=== PATIENT | male | born 1930 | race Caucasian/White ===

== ENCOUNTER → 2016-07-06 | Outpatient (CLI) | payer MEDICARE, OTHER ==
[~2016-07-06] MED LIST: ATOR10 PO; ECOT81TA2 PO; LATA.005%O OU; LEVE750T8 PO; PRED20 PO; RANI150T PO; RIVA15 PO; RIVA20 PO
[2016-07-06 15:06] LABS: ALKALINE PHOSPHATASE 65 U/L (45-117); ALT (GPT) 23 U/L (12-78); ANION GAP 9 MEQ/L (5-15); AST (GOT) 14 U/L (15-37); BICARBONATE 25.5 MEQ/L (21.0-32.0); BLOOD UREA NITROGEN 9 MG/DL (7-18); CHLORIDE 106 MEQ/L (98-107); GLOMERULAR FILTRATION RATE 95 ML/MIN (>89); GLUCOSE,FASTING 106 MG/DL (74-99); HDL CHOLESTEROL 120.6 MG/DL (40.0-60.0); LDL CHOLESTEROL 45 MG/DL (0-99); POTASSIUM 3.8 MEQ/L (3.5-5.1); SODIUM (NA) 140 MEQ/L (136-145); TOTAL BILIRUBIN ADULT 0.3 MG/DL (0.2-1.0)
[2016-07-06 15:08] LABS: CREATINE KINASE 49 U/L (39-308)
== END ==
LOC: CLAB 14:20
PROVIDERS: ATTEND Internal Medicine Cardiovascular Disease
DX: E78.5 Hyperlipidemia, unspecified (principal); I10 Essential (primary) hypertension; I25.10 Atherosclerotic heart disease of native coronary artery without angina pectoris
CPT/HCPCS: 36415; 80053; 80061; 82550

== ENCOUNTER → 2016-07-29 | Outpatient (CLI) | payer MEDICARE, OTHER | LOC: CLAB 09:11 | PROVIDERS: ATTEND Internal Medicine Rheumatology | DX: M31.6 Other giant cell arteritis (principal) | CPT/HCPCS: 36415; 85652; 86140 ==

== ENCOUNTER → 2016-10-01 | Outpatient (CLI) | payer MEDICARE, OTHER | LOC: CLAB 09:29 | PROVIDERS: ATTEND Internal Medicine Rheumatology | DX: M31.6 Other giant cell arteritis (principal) | CPT/HCPCS: 36415; 85652; 86140 ==

== ENCOUNTER → 2016-10-27 | Outpatient (CLI) | payer MEDICARE, OTHER ==
[2016-10-27 14:43] LABS: AUTOMATED NEUTROPHIL # 6.3 TH/MM3 (1.8-7.7); BASOPHIL # 0.1 TH/MM3 (0-0.2); BASOPHIL % 0.6 % (0.0-2.0); EOSINOPHIL # 0.1 TH/MM3 (0-0.4); EOSINOPHIL % 1.2 % (0.0-4.0); HEMATOCRIT 38.4 % (39.0-51.0); HEMO FLAGS DIFF FINAL; LYMPHOCYTE # 2.1 TH/MM3 (1.0-4.8); MEAN CELL VOLUME 98.2 FL (80.0-100.0); MEAN CORPUSCULAR HEMOGLOBIN 33.2 PG (27.0-34.0); MEAN CORPUSCULAR HGB CONC 33.8 % (32.0-36.0); MONO % 9.4 % (0.0-8.0); NEUT % 66.8 % (16.0-70.0); PLATELET COUNT 220 TH/MM3 (150-450); RED BLOOD COUNT 3.91 MIL/MM3 (4.50-5.90); WHITE BLOOD COUNT 9.4 TH/MM3 (4.0-11.0)
[2016-10-27 14:54] LABS: ALT (GPT) 18 U/L (12-78); ANION GAP 7 MEQ/L (5-15); AST (GOT) 19 U/L (15-37); BICARBONATE 27.4 MEQ/L (21.0-32.0); BLOOD UREA NITROGEN 7 MG/DL (7-18); CHLORIDE 106 MEQ/L (98-107); GLOMERULAR FILTRATION RATE 87 ML/MIN (>89); GLUCOSE,FASTING 93 MG/DL (74-99); POTASSIUM 5.4 MEQ/L (3.5-5.1); SODIUM (NA) 140 MEQ/L (136-145)
[2016-10-27 14:57] LABS: ALKALINE PHOSPHATASE 67 U/L (45-117); HDL CHOLESTEROL 102.1 MG/DL (40.0-60.0); LDL CHOLESTEROL 66 MG/DL (0-99); TOTAL BILIRUBIN ADULT 0.4 MG/DL (0.2-1.0)
[2016-10-27 15:09] LABS: CREATINE KINASE 68 U/L (39-308)
== END ==
LOC: CLAB 14:23
PROVIDERS: ATTEND Internal Medicine Cardiovascular Disease
DX: E78.5 Hyperlipidemia, unspecified (principal); I25.10 Atherosclerotic heart disease of native coronary artery without angina pectoris; I47.1 Supraventricular tachycardia; Z79.899 Other long term (current) drug therapy
CPT/HCPCS: 36415; 80053; 80061; 82550; 85025

== ENCOUNTER → 2016-12-31 | Outpatient (CLI) | payer MEDICARE, OTHER | LOC: CLAB 08:57 | PROVIDERS: ATTEND Internal Medicine Rheumatology | DX: M31.6 Other giant cell arteritis (principal) | CPT/HCPCS: 36415; 85652; 86140 ==

== ENCOUNTER → 2017-01-27 | Outpatient (CLI) | payer MEDICARE, OTHER | LOC: CLAB 10:59 | PROVIDERS: ATTEND Specialist | DX: M31.6 Other giant cell arteritis (principal); G72.9 Myopathy, unspecified | CPT/HCPCS: 36415; 85652; 86140 ==

== ENCOUNTER → 2017-03-29 | Outpatient (CLI) | payer MEDICARE, OTHER ==
[2017-03-29 10:55] LABS: AUTOMATED NEUTROPHIL # 6.2 TH/MM3 (1.8-7.7); BASOPHIL % 0.1 % (0.0-2.0); HEMATOCRIT 36.1 % (39.0-51.0); HEMO FLAGS DIFF FINAL; LYMPH % 5.7 % (9.0-44.0); LYMPHOCYTE # 0.4 TH/MM3 (1.0-4.8); MEAN CELL VOLUME 98.6 FL (80.0-100.0); MEAN CORPUSCULAR HEMOGLOBIN 32.5 PG (27.0-34.0); MONO % 4.4 % (0.0-8.0); NEUT % 89.8 % (16.0-70.0); PLATELET COUNT 231 TH/MM3 (150-450); RED BLOOD COUNT 3.66 MIL/MM3 (4.50-5.90); RED CELL DISTRIBUTION WIDTH 12.9 % (11.6-17.2)
[2017-03-29 11:19] LABS: ALT (GPT) 15 U/L (12-78); ANION GAP 7 MEQ/L (5-15); AST (GOT) 12 U/L (15-37); BICARBONATE 25.9 MEQ/L (21.0-32.0); BLOOD UREA NITROGEN 9 MG/DL (7-18); CHLORIDE 109 MEQ/L (98-107); GLOMERULAR FILTRATION RATE 73 ML/MIN (>89); GLUCOSE,FASTING 129 MG/DL (74-99); POTASSIUM 4.2 MEQ/L (3.5-5.1); SODIUM (NA) 142 MEQ/L (136-145)
[2017-03-29 11:45] LABS: ALKALINE PHOSPHATASE 74 U/L (45-117); TOTAL BILIRUBIN ADULT 0.5 MG/DL (0.2-1.0)
== END ==
LOC: CLAB 10:29
DX: I26.99 Other pulmonary embolism without acute cor pulmonale (principal)
CPT/HCPCS: 36415; 80053; 82607; 82746; 85025

== ENCOUNTER 2017-06-15 07:48 | Inpatient (IN) | payer MEDICARE, OTHER ==
[2017-06-15] VITALS (7 sets, daily range): BP systolic 132–202; BP diastolic 68–94; PULSE 68–102; RESP 16–22; TEMP 97.5–98; O2SAT 95–98
[~2017-06-15] VITALS: Ht 177.8 cm; Wt 64.3 kg
[2017-06-15] MEDS ORDERED: EYEDRO (08:15)
[2017-06-15] MEDS ORDERED: SODIUM CHLORIDE 0.9% FLUSH 10 ML FLUSH IVF PRN (08:15)
[2017-06-15] MEDS ORDERED: RESP: ALBUTEROL 2.5 MG/IPRATROPIUM 0.5 MG NEB (SCH) INH ONE (08:15)
[2017-06-15] MEDS ORDERED: LEVE750T8 PO (08:15)
[2017-06-15] MEDS ORDERED: LIPI10TA PO (08:15)
[2017-06-15] MEDS ORDERED: PRED5TAB PO (08:15)
[2017-06-15] MEDS ORDERED: RABE1TAB PO (08:15)
--- NOTE | 2017-06-15 08:28 | RADRPT ---
EXAM DATE/TIME: 06/15/2017 08:16 [facility] COMPARISON: CHEST SINGLE AP, April 24, 2016, 8:28. INDICATIONS : Short of breath. MEDICAL HISTORY : History of PEs. SURGICAL HISTORY : None. ENCOUNTER: Initial ACUITY: 1 week PAIN SCORE: 0/10 LOCATION: Bilateral chest FINDINGS: A single view of the chest demonstrates hyperinflation. Heart normal size. Biapical pleural-parenchym al scarring again seen. No consolidation. The cardiomediastinal contours are unremarkable. Osseous s tructures are intact. CONCLUSION: 1. Biapical pleural-parenchymal scarring. 2. No infiltrate. Rashi Brown MD on June 15, 2017 at 8:25 Board Certified Radiologist. This report was verified electronically.
--- NOTE | 2017-06-15 08:28 | PD ---
HPI Chief Complaint: Respiratory Distress Time Seen by Provider: 08:00 Travel History International Travel<30 days: No Contact w/Intl Traveler<30days: No Traveled to known affect area: No History of Present Illness HPI The patient is a 87-year-old male who presents to the emergency department for shortness of breath and right sided chest pain of one week's duration. The patient states his shortness of breath started one week ago and he now has developed right sided chest pain. The pain is described as dull, initially intermittent, however, now constant for the last 2 days. The pain is located over the anterior lateral aspect of the right chest and radiates to the right scapular area. The pain is constant, but is worse with inspiration and occasional cough. He notes a minimal dry nonproductive cough. He denies any known history of COPD or congestive heart failure. He does have a history of pulmonary embolism one year ago and was treated, however, currently does not take any anticoagulants. He denies any recent hospitalizations, surgeries, or prolonged travel. The patient denies any associated fever, chills, or sweats. The patient is followed by his primary physician, Dr. Acosta, and his shove up, Dr. Phelps. The shortness of breath is worse with lying supine and with exertion. PFSH Past Medical History Hx Anticoagulant Therapy: Yes Arthritis: Yes (GENERALIZED) Autoimmune Disease: No Blood Disorders: No Anxiety: No Depression: No Cancer: Yes (SKIN CANCER ) Cardiovascular Problems: Yes (Temporal arteritisis ) High Cholesterol: Yes Chemotherapy: No Diabetes: No Diminished Hearing: No Endocrine: No Gastrointestinal Disorders: Yes GERD: Yes Glaucoma: Yes Genitourinary: Yes (CHRONIC KIDNEY STONES) Immune Disorder: No Implanted Vascular Access Dvce: Yes Kidney Stones: Yes Musculoskeletal: Yes Neurologic: No Psychiatric: No Reproductive: No Respiratory: No Integumentary: Yes (MRSA X 4) Radiation Therapy: No Thyroid Disease: No Past Surgical History Body Medical Devices: RIGHT GREAT TOE IMPLANT Eye Surgery: Yes (SHIMA. CATARACT EXTRACTION WITH IOL's) Genitourinary Surgery: Yes (NEPHROLITHOTRIPSY) Other Surgery: Yes Family History Family Hypercholesterolemia: Yes Social History Alcohol Use: Yes (OCCASIONALLY) Tobacco Use: No (quit 20 years ago) Substance Use: No Allergies-Medications (Allergen,Severity, Reaction): Coded Allergies: Sulfa (Sulfonamide Antibiotics) (Verified Adverse Reaction, Severe, hives , 06/15/17) doxycycline (Verified Adverse Reaction, Severe, RASH, 06/15/17) azithromycin (Verified Adverse Reaction, Intermediate, HIVES, 06/15/17) ciprofloxacin (Verified Adverse Reaction, Intermediate, HIVES, 06/15/17) levofloxacin (Verified Adverse Reaction, Intermediate, hives, 06/15/17) linezolid (Verified Adverse Reaction, Intermediate, rash, 06/15/17) mupirocin (Verified Adverse Reaction, Intermediate, HIVES, 06/15/17) penicillin G (Verified Adverse Reaction, Intermediate, HIVES, 06/15/17) rifampin (Verified Adverse Reaction, Intermediate, hives, 06/15/17) sulfamethoxazole (Verified Adverse Reaction, Intermediate, hives, 06/15/17 ) trimethoprim (Verified Adverse Reaction, Intermediate, hives, 06/15/17) *MDRO Multi-Drug Resistant Organism (Verified Adverse Reaction, Unknown, 06/15/17) MRSA (wounds) - 2008 MRSA PCR Screens NEGATIVE - 02/18/16, 02/20/16 CLEARED PER INFECTION CONTROL Reported Meds & Prescriptions Reported Meds & Active Scripts Active Reported Prednisone 5 Mg Tab 5 Mg PO DAILY Rabeprazole (Rabeprazole Sodium) 20 Mg Tab 20 Mg PO DAILY Lipitor (Atorvastatin Calcium) 10 Mg Tab 10 Mg PO HS Levetiracetam 750 Mg Tab 750 Mg PO BID [Eye Drops] Review of Systems Except as stated in HPI: all other systems reviewed are Neg General / Constitutional: No: Fever, Chills Cardiovascular: Positive: Chest Pain or Discomfort, Dyspnea on exertion Respiratory: Positive: Shortness of Breath, Pleuritic Pain Gastrointestinal: No: Nausea, Vomiting, Abdominal Pain Musculoskeletal: Positive: Edema (chronic right lower extremity edema secondary to previous surgery) Neurologic: No: Dizziness Physical Exam Narrative GENERAL: Awake, alert, pleasant 87-year-old male who appears his stated age and is in no acute respiratory distress. SKIN: Focused skin assessment warm/dry. No noted hair of the head or eyebrows. Patient is wearing facial makeup. HEAD: Atraumatic. Normocephalic. EYES: Pupils equal and round. No scleral icterus. No injection or drainage. ENT: No nasal bleeding or discharge. Mucous membranes pink and moist. NECK: Trachea midline. No JVD. CARDIOVASCULAR: Regular, no audible murmur, heart rate in the 90s. RESPIRATORY: No accessory muscle use. Clear to auscultation. Breath sounds equal bilaterally. GASTROINTESTINAL: Abdomen soft, non-tender, nondistended. MUSCULOSKELETAL: No obvious deformities. No clubbing. No cyanosis. Right lower extremity is slightly larger than the left lower extremity. Calves are soft bilaterally. NEUROLOGICAL: Awake and alert. No obvious cranial nerve deficits. Motor grossly within normal limits. Normal speech. PSYCHIATRIC: Appropriate mood and affect; insight and judgment normal. Data Data Last Documented VS Vital Signs Date Time Temp Pulse Resp B/P (MAP) Pulse Ox O2 Delivery O2 Flow Rate FiO2 06/15/17 08:20 100 06/15/17 08:20 06/15/17 08:15 Room Air 06/15/17 07:49 97.5 102 22 Orders Orders Complete Blood Count With Diff (06/15/17 08:09) Comprehensive Metabolic Panel (06/15/17 08:09) B-Type Natriuretic Peptide (06/15/17 08:09) Act Partial Throm Time (Ptt) (06/15/17 08:09) Prothrombin Time / Inr (Pt) (06/15/17 08:09) Magnesium (Mg) (06/15/17 08:09) Ckmb (Isoenzyme) Profile (06/15/17 08:09) Troponin I (06/15/17 08:09) Iv Access Insert/Monitor (06/15/17 08:09) Electrocardiogram (06/15/17 08:09) Ecg Monitoring (06/15/17 08:09) Oximetry (06/15/17 08:09) Oxygen Administration (06/15/17 08:09) Chest, Single Ap (06/15/17 08:09) Ct Pulmonary Angiogram (06/15/17 08:09) Sodium Chloride 0.9% Flush (Ns Flush) (06/15/17 08:15) Albuterol-Ipratropium Neb (Duoneb Neb) (06/15/17 08:15) Heparin Inj (Heparin Inj) (06/15/17 09:49) Heparin Inj (Heparin Inj) (06/15/17 16:00) Heparin Inj (Heparin Inj) (06/15/17 16:00) Heparin-D5w 25,000 U/250 Ml (Heparin-D5w (06/15/17 10:00) Act Partial Throm Time (Ptt) (06/15/17 09:49) Cbc No Diff, Includes Plts (06/15/17 09:49) Cbc No Diff, Includes Plts (06/18/17 06:00) Act Partial Throm Time (Ptt) (06/15/17 16:49) Occult Blood (Hemoccult) Stool (06/15/17 09:49) Iohexol 350 Inj (Omnipaque 350 Inj) (06/15/17 09:53) Admit Order (Ed Use Only) (06/15/17 ) Land Commissioner / Telemetry ROSALIE.Q8H (06/15/17 10:39) Vital Signs (Adult) Q4H (06/15/17 10:39) Diet Heart Healthy (06/15/17 Lunch) Activity Oob With Assistance (06/15/17 10:39) Labs Laboratory Tests Test 06/15/17 08:15 06/15/17 10:20 White Blood Count 11.3 TH/MM3 10.5 TH/MM3 Red Blood Count 3.92 MIL/MM3 3.78 MIL/MM3 Hemoglobin 12.9 GM/DL 12.2 GM/DL Hematocrit 38.5 % 36.9 % Mean Corpuscular Volume 98.1 FL 97.6 FL Mean Corpuscular Hemoglobin 33.0 PG 32.3 PG Mean Corpuscular Hemoglobin Concent 33.6 % 33.1 % Red Cell Distribution Width 13.8 % 13.8 % Platelet Count 179 TH/MM3 176 TH/MM3 Mean Platelet Volume 7.9 FL 8.0 FL Neutrophils (%) (Auto) 88.0 % Lymphocytes (%) (Auto) 5.6 % Monocytes (%) (Auto) 6.0 % Eosinophils (%) (Auto) 0.2 % Basophils (%) (Auto) 0.2 % Neutrophils # (Auto) 10.0 TH/MM3 Lymphocytes # (Auto) 0.6 TH/MM3 Monocytes # (Auto) 0.7 TH/MM3 Eosinophils # (Auto) 0.0 TH/MM3 Basophils # (Auto) 0.0 TH/MM3 CBC Comment DIFF FINAL Differential Comment Prothrombin Time 11.8 SEC Prothromb Time International Ratio 1.2 RATIO Activated Partial Thromboplast Time 23.6 SEC 23.6 SEC Blood Urea Nitrogen 11 MG/DL Creatinine 0.90 MG/DL Random Glucose 184 MG/DL Total Protein 7.0 GM/DL Albumin 3.5 GM/DL Calcium Level 9.2 MG/DL Magnesium Level 2.1 MG/DL Alkaline Phosphatase 73 U/L Aspartate Amino Transf (AST/SGOT) 24 U/L Alanine Aminotransferase (ALT/SGPT) 23 U/L Total Bilirubin 0.6 MG/DL Sodium Level 137 MEQ/L Potassium Level 3.9 MEQ/L Chloride Level 102 MEQ/L Carbon Dioxide Level 26.5 MEQ/L Anion Gap 9 MEQ/L Estimat Glomerular Filtration Rate 80 ML/MIN Total Creatine Kinase 54 U/L Troponin I LESS THAN 0.02 NG/ML B-Type Natriuretic Peptide 50 PG/ML MDM Medical Decision Making Medical Screen Exam Complete: Yes Emergency Medical Condition: Yes Medical Record Reviewed: Yes Interpretation(s) EKG reveals normal sinus rhythm with a rate 89. Q waves noted in lead 2, 3, and aVF. Laboratory Tests Test 06/15/17 08:15 White Blood Count 11.3 TH/MM3 Red Blood Count 3.92 MIL/MM3 Hemoglobin 12.9 GM/DL Hematocrit 38.5 % Mean Corpuscular Volume 98.1 FL Mean Corpuscular Hemoglobin 33.0 PG Mean Corpuscular Hemoglobin Concent 33.6 % Red Cell Distribution Width 13.8 % Platelet Count 179 TH/MM3 Mean Platelet Volume 7.9 FL Neutrophils (%) (Auto) 88.0 % Lymphocytes (%) (Auto) 5.6 % Monocytes (%) (Auto) 6.0 % Eosinophils (%) (Auto) 0.2 % Basophils (%) (Auto) 0.2 % Neutrophils # (Auto) 10.0 TH/MM3 Lymphocytes # (Auto) 0.6 TH/MM3 Monocytes # (Auto) 0.7 TH/MM3 Eosinophils # (Auto) 0.0 TH/MM3 Basophils # (Auto) 0.0 TH/MM3 CBC Comment DIFF FINAL Differential Comment Prothrombin Time 11.8 SEC Prothromb Time International Ratio 1.2 RATIO Activated Partial Thromboplast Time 23.6 SEC Blood Urea Nitrogen 11 MG/DL Creatinine 0.90 MG/DL Random Glucose 184 MG/DL Total Protein 7.0 GM/DL Albumin 3.5 GM/DL Calcium Level 9.2 MG/DL Magnesium Level 2.1 MG/DL Alkaline Phosphatase 73 U/L Aspartate Amino Transf (AST/SGOT) 24 U/L Alanine Aminotransferase (ALT/SGPT) 23 U/L Total Bilirubin 0.6 MG/DL Sodium Level 137 MEQ/L Potassium Level 3.9 MEQ/L Chloride Level 102 MEQ/L Carbon Dioxide Level 26.5 MEQ/L Anion Gap 9 MEQ/L Estimat Glomerular Filtration Rate 80 ML/MIN Total Creatine Kinase 54 U/L Troponin I LESS THAN 0.02 NG/ML B-Type Natriuretic Peptide 50 PG/ML CT pulmonary angiogram reveals extensive multifocal bilateral pulmonary emboli. Patchy densities right middle lobe and right lower lobe could be infarcts. Biapical pleural parenchymal scarring. Chest x-ray reveals biapical pleural parenchymal scarring. No infiltrate. Differential Diagnosis Differential diagnosis includes pulmonary embolism, pleural effusion, pneumonia , bronchitis, ACS, cardiomyopathy. Narrative Course IV was established, labs are drawn and sent, and the patient was placed on cardiac telemetry monitoring and continuous pulse oximetry monitoring. EKG was ordered and interpreted. Chest x-rays obtained. CT pulmonary angiogram was ordered as patient has a history of pulmonary embolism and has right sided pleuritic chest pain with a heart rate that varies between 90-110. The patient was administered one DuoNeb. Chest x-ray reveals biapical parenchymal scarring but no infiltrate. However, the patient was tachycardic with a history pulmonary embolism and was taken off of his anticoagulant several months ago. No other obvious source of patient's shortness of breath, therefore, CT pulmonary angiogram was ordered, was positive for extensive multifocal bilateral pulmonary emboli with patchy densities in the right middle lobe and right lower lobe which could be infarcts. Therefore, the patient was administered a heparin bolus and placed on a heparin drip. Patient will be admitted to the on-call medical service. Physician Communication Physician Communication The on-call medical service was paged for admission. I discussed the patient with Dr. Khanna who agrees with admission. Diagnosis Primary Impression: Pulmonary embolism Qualified Codes: I26.99 - Other pulmonary embolism without acute cor pulmonale Admitting Information Admitting Physician Requests: Admit Condition: Stable Jesse Shirley MD Jun 15, 2017 08:28
[2017-06-15 08:33] LABS: BASOPHIL % 0.2 % (0.0-2.0); EOSINOPHIL % 0.2 % (0.0-4.0); HEMATOCRIT 38.5 % (39.0-51.0); HEMO FLAGS DIFF FINAL; LYMPH % 5.6 % (9.0-44.0); LYMPHOCYTE # 0.6 TH/MM3 (1.0-4.8); MEAN CELL VOLUME 98.1 FL (80.0-100.0); MEAN CORPUSCULAR HGB CONC 33.6 % (32.0-36.0); PLATELET COUNT 179 TH/MM3 (150-450); RED BLOOD COUNT 3.92 MIL/MM3 (4.50-5.90); RED CELL DISTRIBUTION WIDTH 13.8 % (11.6-17.2); WHITE BLOOD COUNT 11.3 TH/MM3 (4.0-11.0)
[2017-06-15 08:41] LABS: APTT (PATIENT) 23.6 SEC (24.3-30.1); INTERNATIONAL NORMALIZED RATIO 1.2 RATIO; PROTHROMBIN TIME - PATIENT 11.8 SEC (9.8-11.6)
[2017-06-15 08:52] LABS: ALT (GPT) 23 U/L (12-78); ANION GAP 9 MEQ/L (5-15); AST (GOT) 24 U/L (15-37); BICARBONATE 26.5 MEQ/L (21.0-32.0); BLOOD UREA NITROGEN 11 MG/DL (7-18); CHLORIDE 102 MEQ/L (98-107); GLOMERULAR FILTRATION RATE 80 ML/MIN (>89); MAGNESIUM 2.1 MG/DL (1.5-2.5); POTASSIUM 3.9 MEQ/L (3.5-5.1); SODIUM (NA) 137 MEQ/L (136-145)
[2017-06-15 08:56] LABS: ALKALINE PHOSPHATASE 73 U/L (45-117); TOTAL BILIRUBIN ADULT 0.6 MG/DL (0.2-1.0)
[2017-06-15 09:01] LABS: CREATINE KINASE 54 U/L (39-308)
[2017-06-15] MEDS ORDERED: HEPARIN - 10,000 UNITS/ML IV ADDITIVE IV PUSH STA (09:49)
[2017-06-15] MEDS ORDERED: IOHEXOL 350 MG/ML 10 ML VIAL (for RAD DIAG) IVCONTRAST ONE (09:53)
--- NOTE | 2017-06-15 10:00 | RADRPT ---
EXAM DATE/TIME: 06/15/2017 09:28 [facility] COMPARISON: CT PULMONARY ANGIOGRAM, April 24, 2016, 9:33. INDICATIONS : Shortness of breath and right side chest pain. IV CONTRAST: 74 cc Omnipaque 350 (iohexol) IV RADIATION DOSE: 9.45 CTDIvol (mGy) MEDICAL HISTORY : Renal calculi. Pulmonary embolism. SURGICAL HISTORY : None. ENCOUNTER: Initial ACUITY: 2 days PAIN SCALE: 6/10 LOCATION: Right upper chest TECHNIQUE: Volumetric scanning of the chest was performed using a pulmonary embolism protocol MIP images were re constructed. Using automated exposure control and adjustment of the mA and/or kV according to patien t size, radiation dose was kept as low as reasonably achievable to obtain optimal diagnostic quality images. DICOM format image data is available electronically for review and comparison. Follow-up recommendations for detected pulmonary nodules are based at a minimum on nodule size and pa tient risk factors according to Fleischner Society Guidelines. FINDINGS: PULMONARY ARTERIES: Multifocal filling defects are seen in the pulmonary arteries through the segmental level in the uppe r and lower lobes as well as the right middle lobe.. LUNGS: Biapical pleural-parenchymal scarring with bronchiectatic changes. Patchy densities right middle lobe and right lower lobe anteriorly and inferiorly. Could be infarcts. Left lung is clear. PLEURAE: There is no pleural thickening or pleural effusion. MEDIASTINUM: There is good visualization of the great vessels of the middle mediastinum. No evidence of mediastin al or hilar adenopathy/mass. Extensive coronary artery calcifications. MUSCULOSKELETAL: Within normal limits for patient age. MISCELLANEOUS: The visualized upper abdominal organs demonstrate no acute abnormality. CONCLUSION: 1. Extensive multifocal bilateral pulmonary emboli. 2. Patchy densities right middle lobe and right lower lobe could be infarcts. 3. Biapical pleural-parenchymal scarring. Rashi Brown MD on June 15, 2017 at 9:56 Board Certified Radiologist. This report was verified electronically.
[2017-06-15 10:44] LABS: HEMATOCRIT 36.9 % (39.0-51.0); MEAN CELL VOLUME 97.6 FL (80.0-100.0); MEAN CORPUSCULAR HEMOGLOBIN 32.3 PG (27.0-34.0); MEAN CORPUSCULAR HGB CONC 33.1 % (32.0-36.0); PLATELET COUNT 176 TH/MM3 (150-450); RED BLOOD COUNT 3.78 MIL/MM3 (4.50-5.90); RED CELL DISTRIBUTION WIDTH 13.8 % (11.6-17.2); REVIEW FLAG FINAL; WHITE BLOOD COUNT 10.5 TH/MM3 (4.0-11.0)
[2017-06-15 11:00] LABS: APTT (PATIENT) 23.6 SEC (24.3-30.1)
[2017-06-15] MEDS ORDERED: SODIUM CHLORIDE 0.9% FLUSH 10 ML FLUSH IV FLUSH PRN (11:30)
[2017-06-15] MEDS ORDERED: NALOXONE HCL 0.4 MG/ML AMP IV PUSH PRN (11:30)
[2017-06-15] MEDS: SODIUM CHLORIDE 0.9% FLUSH 10 ML FLUSH IV FLUSH SCH (11:57)
[2017-06-15] MEDS: HEPARIN-D5W 25,000 U/250 ML 250 ML IV PRN (11:58)
--- NOTE | 2017-06-15 12:40 | HHI.HP ---
[facility] Angie Peters MD Admission Diagnosis bilateral pulmonary embolism, dyspnea Diagnoses: Travel History International Travel<30 Days: No Contact w/Intl Traveler <30 Da: No Traveled to Known Affected Are: No History of Present Illness History from patient, your physician communication, and review of medical records. Patient is known to me from his prior hospitalization on April 04, 2017. Patient reports that he usually exercises 5 days a week. He has been noticing that he has been short of breath soon after he finished his exercises. He initially contributed this to his workout regimen. However in the past one week, his shortness of breath has been getting worse and worse. He now and also started having right-sided chest pain which is pleuritic in nature. He denies any this is the reason why he came to hospital. He denies any leg asymmetry or swelling. He reports that his right ankle is always swollen because of multiple prior surgeries. This is chronic. Above from the above, patient denies any other symptoms such as fever/cough/ nausea/vomiting/diarrhea/urinary burning or pain on urination. He denies any hematemesis/hematochezia/melena/hematuria. Denies any syncopal episodes. He does report of dizziness but again he stated this is probably secondary to his age and it is not really worsening. Patient was on Xarelto previously for pulmonary embolism. 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 Also he was told that his blood work was negative. Likely the genetic workup. Review of Systems Except as stated in HPI: all other systems reviewed are Neg Past Family Social History Past Medical History seizure dx- 04/04/17- was tapered to keppra 750mg po daily now - Dr Oneal temporal arteritis- Dr Davis- prednisone now tapered to 5mg po daily hyperlipidemia acid refluex hx of PE- 04/24/17- was on xarelto previously - was seeing DR Han cosmetics supervisor- who did blood work and took him off it hx of melanoma of nasal bridge area- goes every 4 months for check up-n MRI of brain with adn without contrast 04/04/17- no mets has routine colonoscopies and endoscopies- no cancer has routine prostate exams with urologist- no cancer Past Surgical History Multiple foot surgery Colonoscopies Lithotripsy Allergies: Coded Allergies: Sulfa (Sulfonamide Antibiotics) (Verified Adverse Reaction, Severe, hives , 06/15/17) doxycycline (Verified Adverse Reaction, Severe, RASH, 06/15/17) azithromycin (Verified Adverse Reaction, Intermediate, HIVES, 06/15/17) ciprofloxacin (Verified Adverse Reaction, Intermediate, HIVES, 06/15/17) levofloxacin (Verified Adverse Reaction, Intermediate, hives, 06/15/17) linezolid (Verified Adverse Reaction, Intermediate, rash, 06/15/17) mupirocin (Verified Adverse Reaction, Intermediate, HIVES, 06/15/17) penicillin G (Verified Adverse Reaction, Intermediate, HIVES, 06/15/17) rifampin (Verified Adverse Reaction, Intermediate, hives, 06/15/17) sulfamethoxazole (Verified Adverse Reaction, Intermediate, hives, 06/15/17 ) trimethoprim (Verified Adverse Reaction, Intermediate, hives, 06/15/17) *MDRO Multi-Drug Resistant Organism (Verified Adverse Reaction, Unknown, 06/15/17) MRSA (wounds) - 2008 MRSA PCR Screens NEGATIVE - 02/18/16, 02/20/16 CLEARED PER INFECTION CONTROL Family History son has primary brain cancer- still living- age 58 youngest daughter- MS - oldest daughter- breast cancer - in remission parents- father- when pt was 4 yo- from heart issues mother- at age 65 - from cva - but not so sure , heart related problems too Social History very little cigarrets from friends only when he was young had some pipes and cigars routinely- but quit 1989 used to drink heavily- now drinks about one drink a day no drugs lives on his own, still driving, works out 5 days a week Physical Exam Vital Signs Vital Signs Date Time Temp Pulse Resp B/P (MAP) Pulse Ox O2 Delivery O2 Flow Rate FiO2 06/15/17 08:20 100 06/15/17 08:20 06/15/17 08:15 100 Room Air 06/15/17 07:49 97.5 102 22 202/94 (130) 97 Physical Exam GENERAL: This is a well-nourished, well-developed patient, in no apparent distress. Pallor present. 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 SKIN: No rashes, ecchymoses or lesions. Cool and dry. HEAD: Atraumatic. Normocephalic. No temporal or scalp tenderness. EYES: No scleral icterus. No injection or drainage. ENT: Nose without bleeding, purulent drainage or septal hematoma. Airway patent. NECK: Trachea midline. No JVD Supple, nontender, no meningeal signs. CARDIOVASCULAR: Regular rate and rhythm without murmurs, gallops, or rubs. RESPIRATORY: Clear to auscultation. Breath sounds equal bilaterally. No wheezes , rales, or rhonchi. GASTROINTESTINAL: Abdomen soft, non-tender, nondistended. . No guarding. MUSCULOSKELETAL: Extremities without clubbing, cyanosis, or edema. No calf tenderness. Neurology: No acute focal deficits. Normal speech. Laboratory Laboratory Tests Test 06/15/17 08:15 06/15/17 10:20 White Blood Count 11.3 10.5 Red Blood Count 3.92 3.78 Hemoglobin 12.9 12.2 Hematocrit 38.5 36.9 Mean Corpuscular Volume 98.1 97.6 Mean Corpuscular Hemoglobin 33.0 32.3 Mean Corpuscular Hemoglobin Concent 33.6 33.1 Red Cell Distribution Width 13.8 13.8 Platelet Count 179 176 Mean Platelet Volume 7.9 8.0 Neutrophils (%) (Auto) 88.0 Lymphocytes (%) (Auto) 5.6 Monocytes (%) (Auto) 6.0 Eosinophils (%) (Auto) 0.2 Basophils (%) (Auto) 0.2 Neutrophils # (Auto) 10.0 Lymphocytes # (Auto) 0.6 Monocytes # (Auto) 0.7 Eosinophils # (Auto) 0.0 Basophils # (Auto) 0.0 CBC Comment DIFF FINAL Differential Comment Prothrombin Time 11.8 Prothromb Time International Ratio 1.2 Activated Partial Thromboplast Time 23.6 23.6 Blood Urea Nitrogen 11 Creatinine 0.90 Random Glucose 184 Total Protein 7.0 Albumin 3.5 Calcium Level 9.2 Magnesium Level 2.1 Alkaline Phosphatase 73 Aspartate Amino Transf (AST/SGOT) 24 Alanine Aminotransferase (ALT/SGPT) 23 Total Bilirubin 0.6 Sodium Level 137 Potassium Level 3.9 Chloride Level 102 Carbon Dioxide Level 26.5 Anion Gap 9 Estimat Glomerular Filtration Rate 80 Total Creatine Kinase 54 Troponin I LESS THAN 0.02 B-Type Natriuretic Peptide 50 Result Diagram: 06/15/17 1020 06/15/1715 Imaging Last 48 hours Impressions Chest X-Ray 06/15/17808 Signed Impressions: Service Date/Time: Thursday, June 15, 2017 08:16 - CONCLUSION: 1. Biapical pleural-parenchymal scarring. 2. No infiltrate. Rashi Brown MD CT Angiography 06/15/17808 Signed Impressions: Service Date/Time: Thursday, June 15, 2017 09:28 - CONCLUSION: 1. Extensive multifocal bilateral pulmonary emboli. 2. Patchy densities right middle lobe and right lower lobe could be infarcts. 3. Biapical pleural-parenchymal scarring. MD Gayle Duran VTE Risk Assessment Caprini VTE Risk Assessment: Mod/High Risk (score >= 2) Caprini Risk Assessment Model Point Value = 1 Point Value = 2 Point Value = 3 Point Value = 5 Age 41-60 Minor surgery BMI > 25 kg/m2 Swollen legs Varicose veins or History of unexplained or recurrent spontaneous Oral contraceptives or hormone replacement Sepsis (< 1 month) Serious lung disease, including pneumonia (< 1 month) Abnormal pulmonary function Acute myocardial infarction Congestive heart failure (< 1 month) History of inflammatory bowel disease Medical patient at bed rest Age 61-74 Arthroscopic surgery Major open surgery (> 45 min) Laparoscopic surgery (> 45 min) Malignancy Confined to bed (> 72 hours) Immobilizing plaster cast Central venous access Age >= 75 History of VTE Family history of VTE Factor V Leiden Prothrombin [id number] Lupus anticoagulant Anticardiolipin antibodies Elevated serum homocysteine Heparin-induced thrombocytopenia Other congenital or acquired thrombophilia Stroke (< 1 month) Elective arthroplasty Hip, pelvis, or leg fracture Acute spinal cord injury (< 1 month) Prophylaxis Regimen Total Risk Factor Score Risk Level Prophylaxis Regimen 0-1 Low Early ambulation 2 Moderate Order ONE of the following: *Sequential Compression Device (SCD) *Heparin 5000 units SQ BID 3-4 Higher Order ONE of the following medications: *Heparin 5000 units SQ TID *Enoxaparin/Lovenox 40 mg SQ daily (WT < 150 kg, CrCl > 30 mL/min) *Enoxaparin/Lovenox 30 mg SQ daily (WT < 150 kg, CrCl > 10-29 mL/min) *Enoxaparin/Lovenox 30 mg SQ BID (WT < 150 kg, CrCl > 30 mL/min) AND/OR *Sequential Compression Device (SCD) 5 or more Highest Order ONE of the following medications: *Heparin 5000 units SQ TID (Preferred with Epidurals) *Enoxaparin/Lovenox 40 mg SQ daily (WT < 150 kg, CrCl > 30 mL/min) *Enoxaparin/Lovenox 30 mg SQ daily (WT < 150 kg, CrCl > 10-29 mL/min) *Enoxaparin/Lovenox 30 mg SQ BID (WT < 150 kg, CrCl > 30 mL/min) AND *Sequential Compression Device (SCD) Assessment and Plan Assessment and Plan Impression: Bilateral extensive pulmonary emboli with pulmonary infarct Prior history of pulmonary emboli with anticoagulation on Xarelto. Was stopped his cosmetics supervisor co morbid conditions: seizure dx- 04/04/17- was tapered to keppra 750mg po daily now - Dr Oneal temporal arteritis- Dr Davis- prednisone now tapered to 5mg po daily hyperlipidemia acid refluex hx of PE- 04/24/17- was on xarelto previously - was seeing DR Han cosmetics supervisor- who did blood work and took him off it hx of melanoma of nasal bridge area- goes every 4 months for check up-n MRI of brain with adn without contrast 04/04/17- no mets has routine colonoscopies and endoscopies- no cancer has routine prostate exams with urologist- no cancer Plan: Patient was started on heparin drip in ER. Would consult hematology as to try some of anticoagulation. Would be best to continue Xarelto for lifelong. However would await on hematology opinion. Patient has had colonoscopies and prostate exams routinely. Would really benefit from further workup for occult malignancy. Resume his home medications. DVT prophylaxis on heparin drip. Discussed Condition With patient, ER MD, nursing staff Physician Certification 2 Midnight Certification Type: Admission for Inpatient Services Order for Inpatient Services The services are ordered in accordance with Medicare regulations or non- Medicare payer requirements, as applicable. In the case of services not specified as inpatient-only, they are appropriately provided as inpatient services in accordance with the 2-midnight benchmark. Estimated LOS (days): 2 days is the estimated time the patient will need to remain in the hospital, assuming treatment plan goals are met and no additional complications. Post-Hospital Plan: Home Tanmay Khanna MD Jun 15, 2017 12:40
--- NOTE | 2017-06-15 14:56 | EKG ---
Date Performed: 06/15/2017 Time Performed: 08:11:16 PTAGE: 87 years EKG: Sinus rhythm INFERIOR MYOCARDIAL INFARCTION ABNORMAL ECG PREVIOUS TRACING : 04/24/2016 21.05 DOCTOR: Sawyer Tinoco Interpretating Date/Time 06/15/2017 14:55:26
--- NOTE | 2017-06-15 15:28 | ECHRPT ---
Indication: CONCLUSIONS Normal left ventricular size. Wall thickness is normal. The left ventricular systolic function is low normal with an estimated ejection fraction in the rang e of 50- 55%. Mitral annular calcification is present. Mild thickening of the mitral valve leaflets. Aortic valve sclerosis is present. Mild aortic valve regurgitation. There is trace tricuspid valve regurgitation. The estimated pulmonary arterial pressure is 44 mmHg. BP: / HR: Rhythm: MEASUREMENTS (Male / Female) Normal Values Technical Quality:Good 2D ECHO LV Diastolic Diameter PLAX 4.6 cm 4.2 - 5.9 / 3.9 - 5.3 cm LV Systolic Diameter PLAX 3.6 cm IVS Diastolic Thickness 0.8 cm 0.6 - 1.0 / 0.6 - 0.9 cm LVPW Diastolic Thickness 0.7 cm 0.6 - 1.0 / 0.6 - 0.9 cm LV Relative Wall Thickness 0.3 RV Internal Dim ED PLAX 2.7 cm LA Systolic Diameter LX 3.7 cm 3.0 - 4.0 / 2.7 - 3.8 cm M-MODE AV Cusp Separation MM 1.9 cm DOPPLER AV Peak Velocity 149.0 cm/s AV Peak Gradient 8.9 mmHg AV Mean Gradient 4.0 mmHg AV Velocity Time Integral 30.8 cm LVOT Peak Velocity 149.0 cm/s LVOT Peak Gradient 8.9 mmHg LVOT Velocity Time Integral 29.9 cm MV Peak Velocity 103.0 cm/s MV Peak Gradient 4.2 mmHg MV Mean Velocity 56.9 cm/s MV Mean Gradient 2.0 mmHg Mitral E Point Velocity 68.6 cm/s Mitral A Point Velocity 99.2 cm/s Mitral E to A Ratio 0.7 TR Peak Velocity 311.0 cm/s TR Peak Gradient 38.7 mmHg Right Atrial Pressure 5.0 mmHg Pulmonary Artery Systolic Pressu 43.7 mmHg Right Ventricular Systolic Press 43.7 mmHg FINDINGS LEFT VENTRICLE Normal left ventricular size. Wall thickness is normal. The left ventricular systolic function is low normal with an estimated ejection fraction in the rang e of 50- 55%. RIGHT VENTRICLE Normal right ventricular size and systolic function. LEFT ATRIUM The left atrial size is normal. RIGHT ATRIUM The right atrial size is normal. ATRIAL SEPTUM Normal atrial septal thickness without atrial level shunting by limited color doppler interrogation. AORTA The aortic root and proximal ascending aorta are normal in size on limited imaging. MITRAL VALVE Mitral annular calcification is present. Mild thickening of the mitral valve leaflets. AORTIC VALVE Aortic valve sclerosis is present. Mild aortic valve regurgitation. TRICUSPID VALVE There is trace tricuspid valve regurgitation. The estimated pulmonary arterial pressure is 43.7 mmHg. PULMONARY VALVE No pulmonary valve regurgitation or stenosis. VESSELS The inferior vena cava is normal in size. PERICARDIUM No pericardial effusion. Katheryn Cannon MD, FACC (Electronically Signed) Final Date:15 June 2017 15:27
[2017-06-15] MEDS ORDERED: HEPARIN SODIUM - IV 10,000 UNITS/10 ML VIAL IV PRN (16:00)
[2017-06-15] MEDS ORDERED: HEPARIN - 10,000 UNITS/ML IV ADDITIVE IV PRN (16:00)
[2017-06-15 20:47] LABS: APTT (PATIENT) 45.6 SEC (24.3-30.1)
[2017-06-15] MEDS ORDERED: ATORVASTATIN 10 MG TAB PO SCH (21:00)
[2017-06-15] MEDS ORDERED: LATANOPROST 0.005% OPHT SOLN 2.5 ML BTL EACH EYE SCH (21:00)
--- NOTE | 2017-06-15 21:27 | RADRPT ---
EXAM DATE/TIME: 06/15/2017 20:44 [place] COMPARISON: No previous studies available for comparison. EXTERNAL COMPARISON : [facility], US LEG VENOUS DOPPLER BILATERAL, February 24, 2017 INDICATIONS : Pulmonary embolism. MEDICAL HISTORY : Hypercholesterolemia. Gastroesophageal reflux disease. Renal calculi. Glaucoma. Anticoagulant therapy . Arthritis. Skin cancer. Pulmonary embolism. Measles. MRSA SURGICAL HISTORY : Bilateral cataract removal. Bilateral lens replacement. Nephrolithotripsy. Right foot surgery. ENCOUNTER: Subsequent ACUITY: 1 day PAIN SCORE: 0/10 LOCATION: Bilateral legs. TECHNIQUE: Venous ultrasound of the left and right leg was performed from the inguinal ligament to the proximal calf. Real-time, color Doppler and spectral tracing, compression and augmentation techniques were us ed. FINDINGS: RIGHT LEG: There is extensive mostly occlusive thrombus extending from the right superficial femoral vein distal ly. Common femoral vein is patent. LEFT LEG: There is normal compressibility of the deep venous system from the inguinal region to the proximal ca lf. No echogenic clot is seen in the lumen of the common femoral, femoral, popliteal, and posterior tibial veins. There is a normal response of the venous system to proximal and distal augmentation an d respiration. CONCLUSION: 1. Extensive deep venous thrombosis right lower extremity. Left lower extremity within normal limits. Sherman Michaud MD on June 15, 2017 at 21:23 Board Certified Radiologist. This report was verified electronically.
[2017-06-15] MEDS ORDERED: ACETAMINOPHEN 325 MG TAB PO PRN (22:15)
[2017-06-15] MEDS: ACETAMINOPHEN/HYDROcodone 325 MG/5 MG TAB PO PRN (22:26)
[2017-06-16 00:53] VITALS: BP 152/75; PULSE 68; RESP 18; TEMP 97.9; O2SAT 97
[2017-06-16 02:36] LABS: AUTOMATED NEUTROPHIL # 6.8 TH/MM3 (1.8-7.7); BASOPHIL % 0.5 % (0.0-2.0); EOSINOPHIL # 0.1 TH/MM3 (0-0.4); HEMATOCRIT 34.9 % (39.0-51.0); HEMO FLAGS DIFF FINAL; LYMPH % 19.1 % (9.0-44.0); LYMPHOCYTE # 1.9 TH/MM3 (1.0-4.8); MEAN CELL VOLUME 96.9 FL (80.0-100.0); MEAN CORPUSCULAR HEMOGLOBIN 32.3 PG (27.0-34.0); MEAN CORPUSCULAR HGB CONC 33.3 % (32.0-36.0); MONO % 9.6 % (0.0-8.0); NEUT % 69.8 % (16.0-70.0); PLATELET COUNT 166 TH/MM3 (150-450); RED CELL DISTRIBUTION WIDTH 13.7 % (11.6-17.2); WHITE BLOOD COUNT 9.8 TH/MM3 (4.0-11.0)
[2017-06-16 02:46] LABS: APTT (PATIENT) 56.5 SEC (24.3-30.1)
[2017-06-16] MEDS: ACETAMINOPHEN/HYDROcodone 325 MG/5 MG TAB PO PRN ×2 (02:53→08:28)
[2017-06-16 02:55] LABS: BICARBONATE 29.6 MEQ/L (21.0-32.0); POTASSIUM 4.2 MEQ/L (3.5-5.1)
[2017-06-16 04:42] VITALS: PULSE 67
[2017-06-16 05:00] VITALS: BP 138/78; PULSE 68; RESP 16; TEMP 97.6; O2SAT 96
[2017-06-16] MEDS ORDERED: MORPHINE SULFATE 2 MG/ML INJ IV ONE (05:30)
--- NOTE | 2017-06-16 05:38 | MB ---
cc: TOÑO AGUIRRE M.D. DATE OF CONSULTATION June 15, [address] Khanna REASON FOR CONSULTATION Hematology consulted to render opinion regarding patient with recurrent pulmonary embolism. HISTORY OF PRESENT ILLNESS The patient is very pleasant 87-year-old male who presented to the hospital with complaint of increased shortness of breath and dyspnea on exertion. He is still working out in the gym five days a week. Over the last week he felt more tired and more short of breath after his exercise. This morning he started having right pleuritic pain. He decided to come in the hospital. He had first pulmonary embolism involving the right lung in April of 2016. The episode appeared to be unprovoked at that time. He did not have any ultrasound in the lower extremity at that time. He was treated with Xarelto. He has been followed by Dr. Han. In March the Xarelto was discontinued. Reportedly his workup was all unremarkable. Today when he present to the hospital, CT angiogram again showed extensive of multifocal pulmonary embolism. He denies any lower extremity edema. He has no constitutional symptoms. Denies any nausea, vomiting, diarrhea, abdominal pain. No dysuria or hematuria. Denies any bone pain. He denies any bleeding or bruising. PAST MEDICAL HISTORY 1. Right lung pulmonary embolism April 2016, as above. 2. Seizure disorder. 3. Temporal arteritis. 4. Hyperlipidemia. 5. Gastroesophageal reflux disease. 6. Melanoma involving nasal bridge, status post excision. MRI in April 2017 did not show any metastatic disease to the brain. PAST SURGICAL HISTORY 1. Colonoscopy. 2. Multiple foot surgeries. 3. Lithotripsy. FAMILY HISTORY One son has brain cancer under treatment. Daughter with MS. Another daughter had breast cancer. No other blood clots in the family. SOCIAL HISTORY Uses a small pipe and cigar but quit in 1989. He has one drink per day. ALLERGIES SULFA. AZITHROMYCIN. CIPROFLOXACIN. DOXYCYCLINE. LEVOFLOXACIN. MUPIROCIN. LINEZOLID. MEDICATIONS 1. Prednisone. 2. Heparin. REVIEW OF SYSTEMS CONSTITUTION: No fever, chills, night sweat, weight loss. EYES: No negative. ENT: Negative. CARDIOVASCULAR: As above. RESPIRATORY: As above. GI: Negative. : Negative. MUSCULOSKELETAL: Negative. HEMATOLOGY: As above. ENDOCRINE: Negative. DERMATOLOGY: Negative. PSYCHIATRIC: Negative. NEUROLOGIC: Negative. PHYSICAL EXAMINATION VITALS: Temperature 97.8, blood pressure 163/77, O2 saturation 98% on room air. GENERAL: He is alert and oriented x3, in no acute distress. HEENT: Atraumatic, normocephalic. Pupils equal, round and reactive to light. Extraocular muscles intact. No scleral icterus. Oropharynx - dry mucosa; no lesion. NECK: No thyromegaly. No palpable masses. LYMPHATICS: No palpable cervical, clavicular, axillary or inguinal lymph nodes. CARDIOVASCULAR: Regular S1 and S2. No murmur. LUNGS: Clear to auscultation. No wheezing or rhonchi. ABDOMEN: Soft, nontender. Could not palpate liver or spleen. EXTREMITIES: No cyanosis, clubbing, no significant edema. No calf tenderness. SKIN: No rash or petechiae. NEUROLOGIC: Examination nonfocal. LABORATORY DATA WBC 10.5, hemoglobin 12..2 plate count 176. Creatinine 0.9. Liver transaminase within normal limits. ASSESSMENT 1. Recurrent pulmonary embolism. He had first episode of pulmonary embolism involving the right lung in April of 2016. That episode appeared to be unprovoked. He did not have ultrasound of the lower extremity done at that time. He was treated with Xarelto until March 2017. He saw Dr. Han and workup reportedly were unremarkable and the Xarelto was stopped in March. He now presented with shortness of breath and right pleuritic chest pain. CT angiogram showed extensive multifocal bilateral pulmonary embolism. There was patchy density in the right middle lobe and right lower lobe which could be infarction. The biapical pleural parenchymal scarring is stable. There is no mass or adenopathy noted. The patient has been active; he works out five days a week. This episode again is unprovoked. He has no family history of thromboembolic event. Given that this is a recurrent episode he needs to be on anticoagulation for life. He tolerated Xarelto well. I think it will be a good choice for him. He is currently on heparin and we can transition him to Xarelto tomorrow. He seems to have a good response to anticoagulation. His symptoms have improved. We will also get ultrasound of his lower extremities to see if he has any lower extremity deep venous thrombosis. 2. Seizure disorder. He has no symptoms. 3. History of temporal arteritis. 4. Gastroesophageal reflux disease. 5. History of melanoma involving nasal bridge status post excision. MRI in April 2017 reportedly did not show any brain metastasis. RECOMMENDATIONS 1. Continue heparin. 2. Can transition him to Xarelto tomorrow. 3. Get ultrasound of the lower extremities. 4. He can follow up with Dr. Han after discharge to monitor anticoagulation. Thank you Dr. Khanna for asking me to see this patient. MD KACI Roberto/ANGELINE /7:31 PM /5:00 AM FARIDA
[2017-06-16 08:06] VITALS: BP 149/73; PULSE 72; RESP 18; TEMP 97.6; O2SAT 98
[2017-06-16] MEDS: SODIUM CHLORIDE 0.9% FLUSH 10 ML FLUSH IV FLUSH SCH (08:26)
[2017-06-16] MEDS: HEPARIN-D5W 25,000 U/250 ML 250 ML IV PRN (08:34)
[2017-06-16 08:50] LABS: APTT (PATIENT) 52.2 SEC (24.3-30.1)
[2017-06-16] MEDS ORDERED: predniSONE 5 MG TAB PO SCH (09:00)
[2017-06-16] MEDS ORDERED: PANTOPRAZOLE SOD 20 MG DELAYED RELEASE TAB PO SCH (09:00)
[2017-06-16] MEDS ORDERED: levETIRAcetam 250 MG TAB PO SCH (09:00)
[2017-06-16 09:16] VITALS: PULSE 69
[2017-06-16] MEDS ORDERED: oxyCODONE/ACETAMINOPHEN 7.5 MG/325 MG TAB PO PRN (10:30)
--- NOTE | 2017-06-16 10:33 | HHI.PR ---
Objective Vitals Vital Signs Date Time Temp Pulse Resp B/P (MAP) Pulse Ox O2 Delivery O2 Flow Rate FiO2 06/16/17 09:16 69 06/16/17 08:06 97.6 72 18 149/73 (98) 98 06/16/17 07:42 Room Air 06/16/17 05:00 97.6 68 16 138/78 (98) 96 06/16/17 04:42 67 06/16/17 04:00 Room Air 06/16/17 00:53 97.9 68 18 152/75 (100) 97 06/16/17 00:00 Room Air 06/15/17 23:43 68 06/15/17 20:50 98.0 80 16 132/69 (90) 95 06/15/17 20:00 Room Air 06/15/17 19:46 75 06/15/17 16:06 97.8 75 19 163/77 (105) 98 06/15/17 15:41 06/15/17 15:10 72 17 137/68 (91) 98 Room Air 06/15/17 12:00 74 17 147/73 (97) 98 Room Air I/O 06/15/17 06/15/17 06/15/17 06/16/17 06/16/17 06/16/17 07:00 15:00 23:00 07:00 15:00 23:00 Intake Total 240 ml 201 ml Balance 240 ml 201 ml Intake Oral 240 ml IV Total 201 ml # Voids 1 1 Result Diagram: 06/16/1720506/16/17205 Kaylin Askew MD Jun 16, 2017 10:33
[2017-06-16] MEDS ORDERED: XARE15TA PO (10:36)
[2017-06-16] MEDS ORDERED: PERC5TAB12 PO (10:36)
--- NOTE | 2017-06-16 10:38 | HHI.DCPOC ---
Discharge Care Plan Diagnosis: (1) Lower extremity deep venous thrombosis (2) Pulmonary embolism (3) History of seizure Goals to Promote Your Health * To prevent worsening of your condition and complications * To maintain your health at the optimal level Directions to Meet Your Goals Take your medications as prescribed Follow your dietary instruction Follow activity as directed Keep your appointments as scheduled Take your immunizations and boosters as scheduled If your symptoms worsen call your PCP, if no PCP go to Urgent Care Center or Emergency Room Smoking is Dangerous to Your Health. Avoid second hand smoke Call the 24-hour hour crisis hotline for domestic abuse at Kaylin Askew MD Jun 16, 2017 10:37
[2017-06-16] MEDS ORDERED: RIVAROXABAN 15 MG TAB PO SCH (11:15)
--- NOTE | 2017-06-16 17:40 | PD.ONC.PN ---
Subjective Subjective Remarks Late entry. Saw pt 0715. He is feeling better. SOB improved. Still has R pleuritic pain but controlled. Objective Data Date Time Temp Pulse Resp B/P (MAP) Pulse Ox O2 Delivery O2 Flow Rate FiO2 06/16/17 09:16 69 06/16/17 08:06 97.6 72 18 149/73 (98) 98 06/16/17 07:42 Room Air 06/16/17 05:00 97.6 68 16 138/78 (98) 96 06/16/17 04:42 67 06/16/17 04:00 Room Air 06/16/17 00:53 97.9 68 18 152/75 (100) 97 06/16/17 00:00 Room Air 06/15/17 23:43 68 06/15/17 20:50 98.0 80 16 132/69 (90) 95 06/15/17 20:00 Room Air 06/15/17 19:46 75 06/16/17 06/16/17 06/16/17 07:00 15:00 23:00 Intake Total 201 ml 24 ml Balance 201 ml 24 ml Result Diagram: 06/16/17 0206 06/16/17 0206 Laboratory Results Laboratory Tests Test 06/15/17 20:19 06/16/17 02:06 06/16/17 08:14 Activated Partial Thromboplast Time 45.6 SEC 56.5 SEC 52.2 SEC White Blood Count 9.8 TH/MM3 Red Blood Count 3.60 MIL/MM3 Hemoglobin 11.6 GM/DL Hematocrit 34.9 % Mean Corpuscular Volume 96.9 FL Mean Corpuscular Hemoglobin 32.3 PG Mean Corpuscular Hemoglobin Concent 33.3 % Red Cell Distribution Width 13.7 % Platelet Count 166 TH/MM3 Mean Platelet Volume 7.8 FL Neutrophils (%) (Auto) 69.8 % Lymphocytes (%) (Auto) 19.1 % Monocytes (%) (Auto) 9.6 % Eosinophils (%) (Auto) 1.0 % Basophils (%) (Auto) 0.5 % Neutrophils # (Auto) 6.8 TH/MM3 Lymphocytes # (Auto) 1.9 TH/MM3 Monocytes # (Auto) 0.9 TH/MM3 Eosinophils # (Auto) 0.1 TH/MM3 Basophils # (Auto) 0.0 TH/MM3 CBC Comment DIFF FINAL Differential Comment Blood Urea Nitrogen 14 MG/DL Creatinine 0.77 MG/DL Random Glucose 103 MG/DL Calcium Level 9.1 MG/DL Sodium Level 142 MEQ/L Potassium Level 4.2 MEQ/L Chloride Level 106 MEQ/L Carbon Dioxide Level 29.6 MEQ/L Anion Gap 6 MEQ/L Estimat Glomerular Filtration Rate 96 ML/MIN Objective Remarks GENERAL: Well-nourished, well-developed patient. SKIN: Warm and dry. HEAD: Normocephalic. EYES: No scleral icterus. No injection or drainage. NECK: Supple, trachea midline. No JVD or lymphadenopathy. LYMPHATIC: No adenopathy. CARDIOVASCULAR: Regular rate and rhythm without murmurs. RESPIRATORY: Breath sounds equal bilaterally. No accessory muscle use. GASTROINTESTINAL: Abdomen soft, non-tender, nondistended. EXTREMITIES: No cyanosis, or edema. MUSCULOSKELETAL: Adequate muscle tone. NEUROLOGICAL: No obvious focal deficit. Awake, alert, and oriented x3. PSYCHIATRIC: Appropriate mood and affect; insight and judgment normal. Assessment/Plan Assessment 1. Recurrent pulmonary embolism. He had first episode of pulmonary embolism involving the right lung in April of 2016. That episode appeared to be unprovoked. He did not have ultrasound of the lower extremity done at that time. He was treated with Xarelto until March 2017. He saw Dr. Han and workup reportedly were unremarkable and the Xarelto was stopped in March. He now presented with shortness of breath and right pleuritic chest pain. CT angiogram showed extensive multifocal bilateral pulmonary embolism. There was patchy density in the right middle lobe and right lower lobe which could be infarction. The biapical pleural parenchymal scarring is stable. There is no mass or adenopathy noted. The patient has been active; he works out five days a week. This episode again is unprovoked. He has no family history of thromboembolic event. Given that this is a recurrent episode he needs to be on anticoagulation for life. He tolerated Xarelto well. I think it will be a good choice for him. 06/16 US showed extensive RLE DVT.Tolerating heparin well and symptoms have improved. Plan Plan: 1. Transition to Xarelto 15mg BID x 21 days and then switch to 20mg daily. 2. Reviewed ultrasound of the lower extremities with pt. 3. He can follow up with Dr. Han after discharge to monitor anticoagulation. Teo Toro MD Jun 16, 2017 17:40
== END 2017-06-16 13:47 | disposition home or self-care (01) | DRG 176 ==
LOC: NEPC 07:48 → NEDA 10:41 → N04A 15:38
PROVIDERS: ADMIT Family Medicine; ATTEND Family Medicine
DX: I26.99 Other pulmonary embolism without acute cor pulmonale (principal); M31.6 Other giant cell arteritis; I82.411 Acute embolism and thrombosis of right femoral vein; G40.909 Epilepsy, unspecified, not intractable, without status epilepticus; E78.5 Hyperlipidemia, unspecified; K21.9 Gastro-esophageal reflux disease without esophagitis; H40.9 Unspecified glaucoma; M19.90 Unspecified osteoarthritis, unspecified site; Z85.820 Personal history of malignant melanoma of skin; Z86.14 Personal history of Methicillin resistant Staphylococcus aureus infection; Z86.711 Personal history of pulmonary embolism; Z87.891 Personal history of nicotine dependence; Z88.1 Allergy status to other antibiotic agents; Z88.2 Allergy status to sulfonamides; Z88.0 Allergy status to penicillin
CPT/HCPCS: 71010; 71275; 80048; 80053; 82550; 83735; 83880; 84484; 85025; 85027; 85610; 85730; 93005; 93306; 93970; 94664; J1644; J2270; J7512; Q9967

== ENCOUNTER → 2017-06-17 | Outpatient (CLI) | payer MEDICARE, OTHER ==
[~2017-06-17] MED LIST changes: -ATOR10 PO; -ECOT81TA2 PO; +EYEDRO; -LATA.005%O OU; +LIPI10TA PO; +PERC5TAB12 PO; -PRED20 PO; +PRED5TAB PO; +RABE1TAB PO; -RANI150T PO; -RIVA15 PO; -RIVA20 PO; +XARE15TA PO
== END ==
LOC: CLAB 07:20
PROVIDERS: ATTEND Internal Medicine Rheumatology
DX: M31.6 Other giant cell arteritis (principal)
CPT/HCPCS: 36415; 85652; 86140

== ENCOUNTER 2017-07-26 22:24 | Observation (INO) | payer MEDICARE, OTHER ==
[~2017-07-26] VITALS: Ht 177.8 cm; Wt 70.0 kg
[2017-07-26 22:29] VITALS: BP 205/86; PULSE 71; RESP 18; TEMP 98.1; O2SAT 100
[2017-07-26] MEDS ORDERED: LATA0.002 EACH EYE (23:06)
--- NOTE | 2017-07-26 23:08 | PD ---
HPI Chief Complaint: Chest Pain Time Seen by Provider: 23:07 Travel History International Travel<30 days: No Contact w/Intl Traveler<30days: No Traveled to known affect area: No History of Present Illness HPI 87-year-old male came to the emergency room with history of left-sided chest pain that started around 5 PM and then it radiated up to his jaw. This made patient very anxious. Patient says the chest pain subsided but the jaw pain stayed for some time. Currently it is gone. The wound on the left side of the chest was more like pressure. He has never had the skin of pain before. Patient is not a smoker. No history of coronary artery disease history. His last stress test was 5 years ago. His [employer] is Dr. Swan. Vital signs were otherwise stable. No aggravating or relieving factors identified to the pain. Patient is on Xarelto for history of PE. PFSH Past Medical History Narrative Medical List of his past medical, surgical, social and family history is reviewed from the nursing note. Hx Anticoagulant Therapy: Yes Arthritis: Yes (GENERALIZED) Autoimmune Disease: No Blood Disorders: No Anxiety: No Depression: No Cancer: Yes (SKIN CANCER ) Cardiovascular Problems: Yes (Temporal arteritisis ) High Cholesterol: Yes Chemotherapy: No Diabetes: No Diminished Hearing: No Endocrine: No Gastrointestinal Disorders: Yes GERD: Yes Glaucoma: Yes Genitourinary: Yes Immune Disorder: No Implanted Vascular Access Dvce: Yes Kidney Stones: Yes (CHRONIC) Musculoskeletal: Yes Neurologic: No Psychiatric: No Reproductive: No Respiratory: No Integumentary: Yes (MRSA X 4) Radiation Therapy: No Thyroid Disease: No Tetanus Vaccination: < 5 Years Past Surgical History Body Medical Devices: RIGHT GREAT TOE IMPLANT Eye Surgery: Yes (SHIMA. CATARACT EXTRACTION WITH IOL's) Genitourinary Surgery: Yes (NEPHROLITHOTRIPSY) Other Surgery: Yes (SKIN CA REMOVED FROM UPPER LIP) Family History Family Hypercholesterolemia: Yes Social History Alcohol Use: Yes (OCCASIONALLY) Tobacco Use: No (quit 20 years ago) Substance Use: No Allergies-Medications (Allergen,Severity, Reaction): Coded Allergies: Sulfa (Sulfonamide Antibiotics) (Verified Adverse Reaction, Severe, hives , 07/26/17) doxycycline (Verified Adverse Reaction, Severe, RASH, 07/26/17) azithromycin (Verified Adverse Reaction, Intermediate, HIVES, 07/26/17) ciprofloxacin (Verified Adverse Reaction, Intermediate, HIVES, 07/26/17) levofloxacin (Verified Adverse Reaction, Intermediate, hives, 07/26/17) linezolid (Verified Adverse Reaction, Intermediate, rash, 07/26/17) mupirocin (Verified Adverse Reaction, Intermediate, HIVES, 07/26/17) penicillin G (Verified Adverse Reaction, Intermediate, HIVES, 07/26/17) rifampin (Verified Adverse Reaction, Intermediate, hives, 07/26/17) sulfamethoxazole (Verified Adverse Reaction, Intermediate, hives, 07/26/17) trimethoprim (Verified Adverse Reaction, Intermediate, hives, 07/26/17) Comments List of his allergies reviewed from the nursing note. Reported Meds & Prescriptions Reported Meds & Active Scripts Active Percocet (Oxycodone-Acetaminophen) 5-325 mg Tab 1 Tab PO Q4H PRN Xarelto (Rivaroxaban) 15 Mg Tab 15 Mg PO BID Reported Latanoprost Opth Drops (Latanoprost) 0.005% Drops 1 Drop EACH EYE HS Refrigerate until opened. Prednisone 5 Mg Tab 5 Mg PO DAILY Rabeprazole (Rabeprazole Sodium) 20 Mg Tab 20 Mg PO DAILY Lipitor (Atorvastatin Calcium) 10 Mg Tab 10 Mg PO HS Levetiracetam 750 Mg Tab 750 Mg PO BID [Eye Drops] Narrative Medication List of his home medications reviewed from the nursing note. Review of Systems Except as stated in HPI: all other systems reviewed are Neg Cardiovascular: Positive: Chest Pain or Discomfort Physical Exam Narrative GENERAL: Awake, alert, no obvious distress SKIN: Focused skin assessment warm/dry. HEAD: Atraumatic. Normocephalic. EYES: Pupils equal and round. No scleral icterus. No injection or drainage. ENT: No nasal bleeding or discharge. Mucous membranes pink and moist. NECK: Trachea midline. No JVD. CARDIOVASCULAR: Regular rate and rhythm. No murmur appreciated. RESPIRATORY: No accessory muscle use. Clear to auscultation. Breath sounds equal bilaterally. GASTROINTESTINAL: Abdomen soft, non-tender, nondistended. Hepatic and splenic margins not palpable. MUSCULOSKELETAL: No obvious deformities. No clubbing. No cyanosis. No edema. NEUROLOGICAL: Awake and alert. No obvious cranial nerve deficits. Motor grossly within normal limits. Normal speech. PSYCHIATRIC: Appropriate mood and affect; insight and judgment normal. Data Data Last Documented VS Vital Signs Date Time Temp Pulse Resp B/P (MAP) Pulse Ox O2 Delivery O2 Flow Rate FiO2 07/26/17 23:54 64 16 173/73 (106) 100 Room Air 07/26/17 22:29 98.1 Orders Orders Electrocardiogram (07/26/17 ) Electrocardiogram (07/26/17 23:14) Basic Metabolic Panel (Bmp) (07/26/17 23:14) Ckmb (Isoenzyme) Profile (07/26/17 23:14) Complete Blood Count With Diff (07/26/17 23:14) Magnesium (Mg) (07/26/17 23:14) Prothrombin Time / Inr (Pt) (07/26/17 23:14) Act Partial Throm Time (Ptt) (07/26/17 23:14) Troponin I (07/26/17 23:14) Chest, Single Ap (07/26/17 23:14) Ecg Monitoring (07/26/17 23:14) Bilateral Bp Monitoring (07/26/17 23:14) Iv Access Insert/Monitor (07/26/17 23:14) Oximetry (07/26/17 23:14) Oxygen Administration (07/26/17 23:14) Sodium Chloride 0.9% Flush (Ns Flush) (07/26/17 23:15) CKMB (07/26/17 23:21) CKMB% (07/26/17 23:21) Place In Observation (07/27/17 00:23) Activity Bed Rest With Brp (07/27/17 00:23) Vital Signs (Adult) Q4H (07/27/17 00:23) Cardiac Rhythm .As Directed (07/27/17 00:23) Notify Dr: Other .PRN (07/27/17 00:23) Notify Dr. Parameters (07/27/17 00:23) Resp Oxygen Nasal Cannula (07/27/17 ) Diet Heart Healthy (07/27/17 Breakfast) Ckmb (Isoenzyme) Profile (07/27/17 00:23) Ckmb (Isoenzyme) Profile (07/27/17 03:23) Troponin I (07/27/17 00:23) Troponin I (07/27/17 03:23) Electrocardiogram (07/27/17 00:23) Electrocardiogram (07/27/17 03:23) ^ Obtain (07/27/17 00:23) Sodium Chloride 0.9% Flush (Ns Flush) (07/27/17 00:30) Sodium Chloride 0.9% Flush (Ns Flush) (07/27/17 09:00) Acetaminophen (Tylenol) (07/27/17 00:30) Ondansetron Inj (Zofran Inj) (07/27/17 00:30) Nitroglycerin Sl (Nitrostat Sl) (07/27/17 00:30) Sole Ruffer / Telemetry ROSALIE.Q8H (07/27/17 00:23) Admit Order (Ed Use Only) (07/27/17 00:23) CKMB (07/27/17 04:00) CKMB% (07/27/17 04:00) Labs Laboratory Tests Test 07/26/17 23:21 White Blood Count 7.7 TH/MM3 Red Blood Count 3.78 MIL/MM3 Hemoglobin 11.9 GM/DL Hematocrit 36.4 % Mean Corpuscular Volume 96.2 FL Mean Corpuscular Hemoglobin 31.5 PG Mean Corpuscular Hemoglobin Concent 32.8 % Red Cell Distribution Width 13.5 % Platelet Count 250 TH/MM3 Mean Platelet Volume 8.7 FL Neutrophils (%) (Auto) 46.1 % Lymphocytes (%) (Auto) 34.9 % Monocytes (%) (Auto) 12.8 % Eosinophils (%) (Auto) 5.5 % Basophils (%) (Auto) 0.7 % Neutrophils # (Auto) 3.6 TH/MM3 Lymphocytes # (Auto) 2.7 TH/MM3 Monocytes # (Auto) 1.0 TH/MM3 Eosinophils # (Auto) 0.4 TH/MM3 Basophils # (Auto) 0.1 TH/MM3 CBC Comment DIFF FINAL Differential Comment Prothrombin Time 11.5 SEC Prothromb Time International Ratio 1.1 RATIO Activated Partial Thromboplast Time 24.5 SEC Blood Urea Nitrogen 8 MG/DL Creatinine 0.87 MG/DL Random Glucose 96 MG/DL Calcium Level 9.4 MG/DL Magnesium Level 2.3 MG/DL Sodium Level 139 MEQ/L Potassium Level 4.4 MEQ/L Chloride Level 108 MEQ/L Carbon Dioxide Level 27.5 MEQ/L Anion Gap 4 MEQ/L Estimat Glomerular Filtration Rate 83 ML/MIN Total Creatine Kinase 151 U/L Creatine Kinase MB 2.0 NG/ML Troponin I LESS THAN 0.02 NG/ML MDM Medical Decision Making Medical Screen Exam Complete: Yes Emergency Medical Condition: Yes Medical Record Reviewed: Yes Interpretation(s) twelve-lead EKG was reviewed by me. Normal sinus rhythm, normal axis, nonspecific ST-T wave changes. Heart rate of 67 bpm. Differential Diagnosis ACS, non-STEMI, nonspecific chest pain Narrative Course 1:11 AM blood test results of back and within acceptable limits. Chest x-rays negative. I will admit the patient to the chest pain center so that he can be ruled out for ACS. This has been explained to the patient and he understands. Procedures EKG Prior to Arrival: No Diagnosis Primary Impression: Chest pain, rule out acute myocardial infarction Admitting Information Admitting Physician Requests: Observation Marj Lozada MD Jul 26, 2017 23:08
[2017-07-26 23:10] VITALS: BP 189/83; PULSE 72; RESP 16; O2SAT 100
[2017-07-26] MEDS ORDERED: SODIUM CHLORIDE 0.9% FLUSH 10 ML FLUSH IVF PRN (23:15)
[2017-07-26 23:37] LABS: AUTOMATED NEUTROPHIL # 3.6 TH/MM3 (1.8-7.7); BASOPHIL # 0.1 TH/MM3 (0-0.2); BASOPHIL % 0.7 % (0.0-2.0); EOSINOPHIL # 0.4 TH/MM3 (0-0.4); EOSINOPHIL % 5.5 % (0.0-4.0); HEMATOCRIT 36.4 % (39.0-51.0); HEMOGLOBIN 11.9 GM/DL (13.0-17.0); LYMPH % 34.9 % (9.0-44.0); LYMPHOCYTE # 2.7 TH/MM3 (1.0-4.8); MEAN CELL VOLUME 96.2 FL (80.0-100.0); MEAN CORPUSCULAR HEMOGLOBIN 31.5 PG (27.0-34.0); MEAN CORPUSCULAR HGB CONC 32.8 % (32.0-36.0); MEAN PLATELET VOLUME 8.7 FL (7.0-11.0); MONO % 12.8 % (0.0-8.0); NEUT % 46.1 % (16.0-70.0); PLATELET COUNT 250 TH/MM3 (150-450); RED BLOOD COUNT 3.78 MIL/MM3 (4.50-5.90); RED CELL DISTRIBUTION WIDTH 13.5 % (11.6-17.2); WHITE BLOOD COUNT 7.7 TH/MM3 (4.0-11.0)
--- NOTE | 2017-07-26 23:37 | RADRPT ---
EXAM DATE/TIME: 07/26/2017 23:19 [facility] COMPARISON: CHEST SINGLE AP, April 03, 2016, 19:03. CHEST SINGLE AP, April 24, 2016, 8:28. CHEST SINGLE AP, June 15, 2017, 8:16. INDICATIONS : Chest pain. MEDICAL HISTORY : Pulmonary embolism. SURGICAL HISTORY : None. ENCOUNTER: Initial ACUITY: 1 day PAIN SCORE: 4/10 LOCATION: Left chest FINDINGS: A single view of the chest demonstrates the lungs to be symmetrically aerated without evidence of mas s, infiltrate or effusion. Stable biapical pleural/parenchymal scarring. The cardiomediastinal cont ours are unremarkable. Stable left thoracolumbar curvature. CONCLUSION: No acute findings. No focal infiltrates seen. Marco Sherwood MD on July 26, 2017 at 23:35 Board Certified Radiologist. This report was verified electronically.
[2017-07-26 23:45] LABS: INTERNATIONAL NORMALIZED RATIO 1.1 RATIO; PROTHROMBIN TIME - PATIENT 11.5 SEC (9.8-11.6)
[2017-07-26 23:51] VITALS: BP 189/83; PULSE 64; RESP 16; O2SAT 100
[2017-07-26 23:54] VITALS: BP 173/73; PULSE 64; RESP 16; O2SAT 100
[2017-07-27] LABS: BICARBONATE 27.5 MEQ/L (21.0-32.0); BLOOD UREA NITROGEN 8 MG/DL (7-18); CALCIUM 9.4 MG/DL (8.5-10.1); CHLORIDE 108 MEQ/L (98-107); CREATININE 0.87 MG/DL (0.60-1.30); GLOMERULAR FILTRATION RATE 83 ML/MIN (>89); GLUCOSE,RANDOM 96 MG/DL (74-106); MAGNESIUM 2.3 MG/DL (1.5-2.5); SODIUM (NA) 139 MEQ/L (136-145)
[2017-07-27 00:04] LABS: TROPONIN I LESS THAN 0.02 NG/ML (0.02-0.05)
[2017-07-27 00:28] VITALS: O2SAT 99
[2017-07-27] MEDS ORDERED: ONDANSETRON HCL 4 MG/2 ML VIAL IV PUSH PRN (00:30)
[2017-07-27] MEDS ORDERED: SODIUM CHLORIDE 0.9% FLUSH 10 ML FLUSH IV FLUSH PRN (00:30)
[2017-07-27] MEDS ORDERED: NITROGLYCERIN 0.4 MG SL 25 TABS/BTL SL PRN (00:30)
[2017-07-27] MEDS ORDERED: ACETAMINOPHEN 500 MG CPLT PO PRN (00:30)
[2017-07-27 01:45] LABS: TROPONIN I LESS THAN 0.02 NG/ML (0.02-0.05)
[2017-07-27 02:22] VITALS: BP 167/77; PULSE 65; RESP 16; O2SAT 100
[2017-07-27 03:45] VITALS: BP 138/65; PULSE 61; RESP 18; TEMP 97.9; O2SAT 100
[2017-07-27 04:55] LABS: TROPONIN I LESS THAN 0.02 NG/ML (0.02-0.05)
[2017-07-27 07:21] VITALS: PULSE 64
[2017-07-27 08:00] VITALS: BP_SYST 141; PULSE 69; RESP 18; TEMP 97.8; O2SAT 100
[2017-07-27] MEDS ORDERED: SODIUM CHLORIDE 0.9% FLUSH 10 ML FLUSH IV FLUSH SCH (09:00)
--- NOTE | 2017-07-27 10:00 | HHI.HP ---
HPI Service [facility] Primary Care Physician Angie Peters MD [facility] Chief Complaint CHEST PAIN History of Present Illness 87 YO white man with an extensive medical history including multiple pulmonary embole, DVT, Temporal arteritis, GERD. About 5 pm while resting he developed an aching pain in his left chest. This seemed to be associated with similar pain in his left neck and jaw. The pain was mild 4/10 and lasted about five hours. There were no associated symptoms such as SOB, NV, diaphoresis or light headedness. No precipitating or relieving factors. He is an active 87 YO and in spite of extensive surgery on his right foot he feels he can walk adequately to do a stress test. He is also followed by Dr. Phelps who he sees every six months but is not sure when his last stress test was. He does have some mild difficulty with memory. Review of Systems Cardiovascular: COMPLAINS OF: See HPI Past Family Social History Allergies: Coded Allergies: Sulfa (Sulfonamide Antibiotics) (Verified Adverse Reaction, Severe, hives , 07/26/17) doxycycline (Verified Adverse Reaction, Severe, RASH, 07/26/17) azithromycin (Verified Adverse Reaction, Intermediate, HIVES, 07/26/17) ciprofloxacin (Verified Adverse Reaction, Intermediate, HIVES, 07/26/17) levofloxacin (Verified Adverse Reaction, Intermediate, hives, 07/26/17) linezolid (Verified Adverse Reaction, Intermediate, rash, 07/26/17) mupirocin (Verified Adverse Reaction, Intermediate, HIVES, 07/26/17) penicillin G (Verified Adverse Reaction, Intermediate, HIVES, 07/26/17) rifampin (Verified Adverse Reaction, Intermediate, hives, 07/26/17) sulfamethoxazole (Verified Adverse Reaction, Intermediate, hives, 07/26/17) trimethoprim (Verified Adverse Reaction, Intermediate, hives, 07/26/17) Past Medical History Multiple skin cancers followed by Dr. Justin Pulmonary emboli followed by Dr. Rivera Clotting issues followed by Dr. Han Temporal Arteritis verified by biopsy Kidney stones recurrent Distant history of MRSA GERD Past Surgical History Recurrent surgery right great toe and foot Skin cancers removed Reported Medications Reported Meds & Active Scripts Active Percocet (Oxycodone-Acetaminophen) 5-325 mg Tab 1 Tab PO Q4H PRN Xarelto (Rivaroxaban) 15 Mg Tab 15 Mg PO BID Reported Latanoprost Opth Drops (Latanoprost) 0.005% Drops 1 Drop EACH EYE HS Refrigerate until opened. Prednisone 5 Mg Tab 5 Mg PO DAILY Rabeprazole (Rabeprazole Sodium) 20 Mg Tab 20 Mg PO DAILY Lipitor (Atorvastatin Calcium) 10 Mg Tab 10 Mg PO HS Levetiracetam 750 Mg Tab 750 Mg PO BID [Eye Drops] Active Ordered Medications Current Medications Medications (Trade) Dose Ordered Sig/Kvng Route Start Time Stop Time Status Last Admin (NS Flush) 2 ml UNSCH PRN IVF 07/26/17 23:15 (NS Flush) 2 ml UNSCH PRN IV FLUSH 07/27/17 00:30 (NS Flush) 2 ml BID IV FLUSH 07/27/17 09:00 07/27/17 08:25 (Tylenol) 500 mg Q4H PRN PO 07/27/17 00:30 (Zofran Inj) 4 mg Q6H PRN IV PUSH 07/27/17 00:30 (Nitrostat Sl) 0.4 mg Q5M PRN SL 07/27/17 00:30 Family History Mother and father of heart related issues. Mother about 65, father about 55 he thinks Social History Occasional ETOH Quit smoking about 20 years ago No illicit drugs Retired Physical Exam Vital Signs Vital Signs Date Time Temp Pulse Resp B/P (MAP) Pulse Ox O2 Delivery O2 Flow Rate FiO2 07/27/17 08:00 97.8 69 18 141/ 100 07/27/17 07:21 64 07/27/17 03:45 97.9 61 18 138/65 (89) 100 07/27/17 02:22 65 16 167/77 (107) 100 Room Air 07/27/17 00:28 99 21 07/26/17 23:54 64 16 173/73 (106) 100 Room Air 07/26/17 23:51 64 16 189/83 (118) 100 Room Air 07/26/17 23:50 100 Room Air 07/26/17 23:10 72 16 189/83 (118) 100 Room Air 07/26/17 22:29 98.1 71 18 205/86 (125) 100 Physical Exam GENERAL WNWD resting comfortably with no distress Head Balding without lesions EENT Pupils are not equal with R>L and poorly responsive. Bilateral IOL. EOM intact MM moist without lesions Neck No masses, nodes or bruits Chest Good BS with no RWR CV RSR with no GRM Abd Soft nontender on GR Ext R trace of pitting edema to mid call, R foot shorter due to multiple surgery. Small superficial lesion lower leg laterally Neuro Cranial nerves intact except for dis-equal pupils. Motor about equal and good. Laboratory Laboratory Tests Test 07/26/17 23:21 07/27/17 00:55 07/27/17 04:00 White Blood Count 7.7 Red Blood Count 3.78 Hemoglobin 11.9 Hematocrit 36.4 Mean Corpuscular Volume 96.2 Mean Corpuscular Hemoglobin 31.5 Mean Corpuscular Hemoglobin Concent 32.8 Red Cell Distribution Width 13.5 Platelet Count 250 Mean Platelet Volume 8.7 Neutrophils (%) (Auto) 46.1 Lymphocytes (%) (Auto) 34.9 Monocytes (%) (Auto) 12.8 Eosinophils (%) (Auto) 5.5 Basophils (%) (Auto) 0.7 Neutrophils # (Auto) 3.6 Lymphocytes # (Auto) 2.7 Monocytes # (Auto) 1.0 Eosinophils # (Auto) 0.4 Basophils # (Auto) 0.1 CBC Comment DIFF FINAL Differential Comment Prothrombin Time 11.5 Prothromb Time International Ratio 1.1 Activated Partial Thromboplast Time 24.5 Blood Urea Nitrogen 8 Creatinine 0.87 Random Glucose 96 Calcium Level 9.4 Magnesium Level 2.3 Sodium Level 139 Potassium Level 4.4 Chloride Level 108 Carbon Dioxide Level 27.5 Anion Gap 4 Estimat Glomerular Filtration Rate 83 Total Creatine Kinase 151 128 109 Creatine Kinase MB 2.0 1.5 Troponin I LESS THAN 0.02 LESS THAN 0.02 LESS THAN 0.02 Result Diagram: 07/26/17 2321 07/26/17 232 Imaging Neg Course Has RO for ACS Will ETT and if neg discharge to FU with Dr. Mattie Araujo VTE Risk Assessment Gayle VTE Risk Assessment: No/Low Risk (score <= 1) Nancii Risk Assessment Model Point Value = 1 Point Value = 2 Point Value = 3 Point Value = 5 Age 41-60 Minor surgery BMI > 25 kg/m2 Swollen legs Varicose veins or History of unexplained or recurrent spontaneous Oral contraceptives or hormone replacement Sepsis (< 1 month) Serious lung disease, including pneumonia (< 1 month) Abnormal pulmonary function Acute myocardial infarction Congestive heart failure (< 1 month) History of inflammatory bowel disease Medical patient at bed rest Age 61-74 Arthroscopic surgery Major open surgery (> 45 min) Laparoscopic surgery (> 45 min) Malignancy Confined to bed (> 72 hours) Immobilizing plaster cast Central venous access Age >= 75 History of VTE Family history of VTE Factor V Leiden Prothrombin 12576A Lupus anticoagulant Anticardiolipin antibodies Elevated serum homocysteine Heparin-induced thrombocytopenia Other congenital or acquired thrombophilia Stroke (< 1 month) Elective arthroplasty Hip, pelvis, or leg fracture Acute spinal cord injury (< 1 month) Prophylaxis Regimen Total Risk Factor Score Risk Level Prophylaxis Regimen 0-1 Low Early ambulation 2 Moderate Order ONE of the following: *Sequential Compression Device (SCD) *Heparin 5000 units SQ BID 3-4 Higher Order ONE of the following medications: *Heparin 5000 units SQ TID *Enoxaparin/Lovenox 40 mg SQ daily (WT < 150 kg, CrCl > 30 mL/min) *Enoxaparin/Lovenox 30 mg SQ daily (WT < 150 kg, CrCl > 10-29 mL/min) *Enoxaparin/Lovenox 30 mg SQ BID (WT < 150 kg, CrCl > 30 mL/min) AND/OR *Sequential Compression Device (SCD) 5 or more Highest Order ONE of the following medications: *Heparin 5000 units SQ TID (Preferred with Epidurals) *Enoxaparin/Lovenox 40 mg SQ daily (WT < 150 kg, CrCl > 30 mL/min) *Enoxaparin/Lovenox 30 mg SQ daily (WT < 150 kg, CrCl > 10-29 mL/min) *Enoxaparin/Lovenox 30 mg SQ BID (WT < 150 kg, CrCl > 30 mL/min) AND *Sequential Compression Device (SCD) Chris Leyva MD Jul 27, 2017 10:00
--- NOTE | 2017-07-27 10:37 | TR ---
Date Performed: 07/27/2017 Time Performed: 10:16:52 DOCTOR: Chris Leyva DRUG LIST: CLINICAL HISTORY: REASON FOR TEST: Chest pain REASON FOR ENDING: OBSERVATION: CONCLUSION: STORMY PROTOCOL. NO CP. TEST STOPPED AFTER EXCEEDING GOAL HR SECONDARY TO SOB AND LEG FATIGUE.Maximum TF=861 % Max HR Nkuuzrqm=684.0% Maximum CJ=555/86 Total Exercise Time=4:00 COMMENTS:
[2017-07-27 11:15] VITALS: BP 136/61; PULSE 68; RESP 18; TEMP 97.7; O2SAT 100
--- NOTE | 2017-07-27 11:41 | EKG ---
Date Performed: 07/27/2017 Time Performed: 03:55:50 PTAGE: 87 years EKG: Sinus rhythm NORMAL ECG NO CHANGE PREVIOUS TRACING : 07/27/2017 00.02 DOCTOR: Chris Leyva Interpretating Date/Time 07/27/2017 11:39:46
--- NOTE | 2017-07-27 11:42 | EKG ---
Date Performed: 07/27/2017 Time Performed: 00:57:22 PTAGE: 87 years EKG: Sinus rhythm INFERIOR MYOCARDIAL INFARCTION ABNORMAL ECG NO SIG CHANGE PREVIOUS TRACING : 07/27/2017 00.02 DOCTOR: Chris Leyva Interpretating Date/Time 07/27/2017 11:40:34
--- NOTE | 2017-07-27 11:43 | HHI.DCPOC ---
Discharge Care Plan Diagnosis: (1) Chest pain Goals to Promote Your Health * To prevent worsening of your condition and complications * To maintain your health at the optimal level Directions to Meet Your Goals Take your medications as prescribed Follow your dietary instruction Follow activity as directed Keep your appointments as scheduled Take your immunizations and boosters as scheduled If your symptoms worsen call your PCP, if no PCP go to Urgent Care Center or Emergency Room Smoking is Dangerous to Your Health. Avoid second hand smoke Call the 24-hour hour crisis hotline for domestic abuse at [facility] Jul 27, 2017 11:43
--- NOTE | 2017-07-27 11:43 | EKG ---
Date Performed: 07/27/2017 Time Performed: 00:02:19 PTAGE: 87 years EKG: Sinus rhythm NORMAL ECG NO CHANGE PREVIOUS TRACING : 07/26/2017 22.48 DOCTOR: Chris Leyva Interpretating Date/Time 07/27/2017 11:41:19
--- NOTE | 2017-07-27 11:43 | EKG ---
Date Performed: 07/26/2017 Time Performed: 22:48:51 PTAGE: 87 years EKG: Sinus rhythm INDETERMINATE AXIS ATYPICAL ECG NO SIG CHANGE PREVIOUS TRACING : 06/15/2017 08.11 DOCTOR: Chris Leyva Interpretating Date/Time 07/27/2017 11:41:39
== END 2017-07-27 12:05 | disposition home or self-care (01) ==
LOC: NEPC 22:24 → NEDA 07-27 00:25 → NEPFCDU 07-27 02:42
PROVIDERS: ADMIT Internal Medicine Interventional Cardiology; ATTEND Internal Medicine Interventional Cardiology
DX: R07.89 Other chest pain (principal); R94.31 Abnormal electrocardiogram [ECG] [EKG]; K21.9 Gastro-esophageal reflux disease without esophagitis; R60.0 Localized edema; R68.84 Jaw pain; E78.00 Pure hypercholesterolemia, unspecified; M19.90 Unspecified osteoarthritis, unspecified site; H40.9 Unspecified glaucoma; Z79.01 Long term (current) use of anticoagulants; Z85.828 Personal history of other malignant neoplasm of skin; Z86.711 Personal history of pulmonary embolism; Z79.899 Other long term (current) drug therapy; Z87.891 Personal history of nicotine dependence
CPT/HCPCS: 71045; 80048; 82550; 82552; 83735; 84484; 85025; 85610; 85730; 93005; 93017; 99285; G0378

== ENCOUNTER → 2017-08-10 | Outpatient (CLI) | payer MEDICARE, OTHER ==
[~2017-08-10] MED LIST changes: +LATA0.002 EACH EYE
== END ==
LOC: CLAB 11:28
PROVIDERS: ATTEND Internal Medicine Rheumatology
DX: M31.6 Other giant cell arteritis (principal)
CPT/HCPCS: 36415; 85652; 86140

== ENCOUNTER → 2017-09-01 | Outpatient (CLI) | payer MEDICARE, OTHER | LOC: CLAB 11:28 | PROVIDERS: ATTEND Specialist | DX: M31.6 Other giant cell arteritis (principal); Z51.81 Encounter for therapeutic drug level monitoring | CPT/HCPCS: 36415; 80177; 85652 ==

== ENCOUNTER 2017-09-10 07:10 | Emergency (ER) | payer MEDICARE, OTHER ==
[~2017-09-10] VITALS: Ht 177.8 cm; Wt 66.0 kg
[2017-09-10 07:30] VITALS: BP 129/62; PULSE 77; RESP 16; TEMP 96.9; O2SAT 100
[2017-09-10] MEDS ORDERED: CEPH-460 PO (07:49)
[2017-09-10] MEDS ORDERED: PRED20 PO (07:49)
--- NOTE | 2017-09-10 07:56 | PD ---
HPI Chief Complaint: Skin Problem Time Seen by Provider: 07:39 Travel History International Travel<30 days: No Contact w/Intl Traveler<30days: No Traveled to known affect area: No History of Present Illness HPI 87-year-old male presents emergency department with warm itchy rash to the left dorsal forearm for the past several days. Patient is unsure why it might be there. Patient states he may have been bitten by an insect. He has not been doing more yard work. He states no animals in the home. He states the erythema has gotten bigger in the last day. He has been using 1% hydrocortisone cream topically with mild relief. He states no pain only itchiness. Patient has multiple allergies, please see list. PFSH Past Medical History Hx Anticoagulant Therapy: Yes Arthritis: Yes (GENERALIZED) Autoimmune Disease: No Blood Disorders: No Anxiety: No Depression: No Cancer: Yes (SKIN CANCER ) Cardiovascular Problems: No High Cholesterol: Yes Chemotherapy: No Cerebrovascular Accident: No Diabetes: No Diminished Hearing: No Endocrine: No Gastrointestinal Disorders: Yes GERD: Yes Glaucoma: Yes Genitourinary: Yes Immune Disorder: No Implanted Vascular Access Dvce: Yes Kidney Stones: Yes (CHRONIC) Musculoskeletal: Yes Neurologic: No Psychiatric: No Reproductive: No Respiratory: No Integumentary: Yes (MRSA X 4) Radiation Therapy: No Thyroid Disease: No Past Surgical History Body Medical Devices: RIGHT GREAT TOE IMPLANT Eye Surgery: Yes (SHIMA. CATARACT EXTRACTION WITH IOL's) Genitourinary Surgery: Yes (NEPHROLITHOTRIPSY) Other Surgery: Yes (SKIN CA REMOVED FROM UPPER LIP) Family History Family Hypercholesterolemia: Yes Social History Alcohol Use: Yes (OCCASIONALLY) Tobacco Use: No (quit 20 years ago) Substance Use: No Allergies-Medications (Allergen,Severity, Reaction): Coded Allergies: Sulfa (Sulfonamide Antibiotics) (Verified Adverse Reaction, Severe, hives , 09/10/17) doxycycline (Verified Adverse Reaction, Severe, RASH, 09/10/17) azithromycin (Verified Adverse Reaction, Intermediate, HIVES, 09/10/17) ciprofloxacin (Verified Adverse Reaction, Intermediate, HIVES, 09/10/17) levofloxacin (Verified Adverse Reaction, Intermediate, hives, 09/10/17) linezolid (Verified Adverse Reaction, Intermediate, rash, 09/10/17) mupirocin (Verified Adverse Reaction, Intermediate, HIVES, 09/10/17) penicillin G (Verified Adverse Reaction, Intermediate, HIVES, 09/10/17) rifampin (Verified Adverse Reaction, Intermediate, hives, 09/10/17) sulfamethoxazole (Verified Adverse Reaction, Intermediate, hives, 09/10/17) trimethoprim (Verified Adverse Reaction, Intermediate, hives, 09/10/17) Reported Meds & Prescriptions Reported Meds & Active Scripts Active Keflex (Cephalexin) 500 Mg Cap 500 Mg PO Q8H 7 Days Prednisone 20 Mg Tab 20 Mg PO DAILY 5 Days Xarelto (Rivaroxaban) 15 Mg Tab 15 Mg PO BID Reported Latanoprost Opth Drops (Latanoprost) 0.005% Drops 1 Drop EACH EYE HS Refrigerate until opened. Rabeprazole (Rabeprazole Sodium) 20 Mg Tab 20 Mg PO DAILY Lipitor (Atorvastatin Calcium) 10 Mg Tab 10 Mg PO HS Levetiracetam 750 Mg Tab 750 Mg PO BID [Eye Drops] Review of Systems Except as stated in HPI: all other systems reviewed are Neg General / Constitutional: No: Fever Eyes: No: Visual changes HENT: No: Headaches Cardiovascular: No: Chest Pain or Discomfort Respiratory: No: Shortness of Breath Gastrointestinal: No: Abdominal Pain Genitourinary: No: Dysuria Musculoskeletal: No: Pain Skin: Positive Rash, Positive Itching Neurologic: No: Weakness Psychiatric: No: Depression Endocrine: No: Polydipsia Hematologic/Lymphatic: No: Easy Bruising Physical Exam Narrative GENERAL: Patient appears in no acute distress. SKIN: Warm and dry. Patient has erythematous somewhat warm flat area to the dorsal left forearm measuring approximately 6 cm x 4 cm, without obvious signs of abscess or pointing. There is no bubbly raised areas noted. Skin in general has normal color but somewhat atrophic HEAD: Atraumatic. Normocephalic. EYES: Pupils equal and round. No scleral icterus. No injection or drainage. ENT: No nasal bleeding or discharge. Mucous membranes pink and moist. Pharynx is clear. Airways patent. NECK: Trachea midline. Supple and nontender. CARDIOVASCULAR: Regular rate and rhythm. RESPIRATORY: No accessory muscle use. Clear to auscultation. Breath sounds equal bilaterally. MUSCULOSKELETAL: Extremities without clubbing, cyanosis, or edema. No obvious deformities. NEUROLOGICAL: Awake and alert. No obvious cranial nerve deficits. Motor grossly within normal limits. Five out of 5 muscle strength in the arms and legs. Normal speech. PSYCHIATRIC: Appropriate mood and affect; insight and judgment normal. Data Data Last Documented VS Vital Signs Date Time Temp Pulse Resp B/P (MAP) Pulse Ox O2 Delivery O2 Flow Rate FiO2 09/10/17 07:30 96.9 77 16 129/62 (84) 100 MDM Medical Decision Making Medical Screen Exam Complete: Yes Emergency Medical Condition: Yes Differential Diagnosis Cellulitis. Allergic reaction. Insect bite with local reaction. Narrative Course Patient will be treated with Keflex 500 mg 3 times daily #21. Patient given prednisone 20 mg daily for 5 days. Patient can continue with topical hydrocortisone as discussed. Patient to follow-up if symptoms do not improve over the next several days. Diagnosis Primary Impression: Cellulitis of forearm, left Referrals: Primary Care Physician Patient Instructions: Cellulitis (ED), General Instructions Additional Instructions: Patient will be treated with Keflex 500 mg 3 times daily #21. Patient given prednisone 20 mg daily for 5 days. Patient can continue with topical hydrocortisone as discussed. Patient to follow-up if symptoms do not improve over the next several days. Med/Other Pt SpecificInfo: Prescription(s) given Scripts Cephalexin (Keflex) 500 Mg Cap 500 MG PO Q8H for Infection for 7 Days, #21 CAP 0 Refills Prov: John Rendon MD 09/10/17 Prednisone (Prednisone) 20 Mg Tab 20 MG PO DAILY for 5 Days, #5 TAB 0 Refills Prov: John Rendon MD 09/10/17 Disposition: 01 DISCHARGE HOME Condition: Stable Brandyn Galloway Sep 10, 2017 07:56
== END 2017-09-10 08:05 | disposition home or self-care (01) ==
LOC: NEPD 07:10
DX: L03.114 Cellulitis of left upper limb (principal); M19.90 Unspecified osteoarthritis, unspecified site; E78.00 Pure hypercholesterolemia, unspecified; K21.9 Gastro-esophageal reflux disease without esophagitis; H40.9 Unspecified glaucoma; Z85.828 Personal history of other malignant neoplasm of skin; Z87.891 Personal history of nicotine dependence
CPT/HCPCS: 99283

== ENCOUNTER 2017-09-28 13:21 | Emergency (ER) | payer MEDICARE, OTHER ==
[~2017-09-28] VITALS: Ht 177.8 cm; Wt 65.0 kg
[~2017-09-28 13:21] MED LIST changes: +CEPH-460 PO; -PERC5TAB12 PO; +PRED20 PO; -PRED5TAB PO
[2017-09-28 13:30] VITALS: BP 146/65; PULSE 82; RESP 16; TEMP 97.8; O2SAT 100
[2017-09-28] MEDS ORDERED: XARE20TA PO (16:22)
[2017-09-28 17:16] LABS: AUTOMATED NEUTROPHIL # 3.9 TH/MM3 (1.8-7.7); BASOPHIL % 0.6 % (0.0-2.0); EOSINOPHIL # 0.5 TH/MM3 (0-0.4); EOSINOPHIL % 6.9 % (0.0-4.0); HEMATOCRIT 36.6 % (39.0-51.0); HEMOGLOBIN 12.3 GM/DL (13.0-17.0); LYMPHOCYTE # 2.2 TH/MM3 (1.0-4.8); MEAN CELL VOLUME 93.2 FL (80.0-100.0); MEAN CORPUSCULAR HEMOGLOBIN 31.5 PG (27.0-34.0); MEAN CORPUSCULAR HGB CONC 33.8 % (32.0-36.0); MEAN PLATELET VOLUME 9.4 FL (7.0-11.0); MONO % 11.6 % (0.0-8.0); MONOCYTE # 0.9 TH/MM3 (0-0.9); NEUT % 51.9 % (16.0-70.0); PLATELET COUNT 247 TH/MM3 (150-450); RED BLOOD COUNT 3.92 MIL/MM3 (4.50-5.90); RED CELL DISTRIBUTION WIDTH 13.2 % (11.6-17.2); WHITE BLOOD COUNT 7.5 TH/MM3 (4.0-11.0)
[2017-09-28] MEDS ORDERED: TRIAM.1%T TOPICAL (17:27)
--- NOTE | 2017-09-28 17:28 | PD ---
HPI Chief Complaint: Dizziness Time Seen by Provider: 16:41 Travel History International Travel<30 days: No Contact w/Intl Traveler<30days: No Traveled to known affect area: No History of Present Illness HPI Is an 87-year-old male presents emergency department complaining of lightheadedness dizziness. States he was seen for a rash on his arm was treated with antibiotics and steroids. Symptoms improved but he has had some episodes of lightheadedness and still has a lot of itching especially in the area. No chest pain. No trouble breathing. Just the one episode of near syncope couple days ago. Itching is mostly right where he had the rash in the left arm but feels sometimes other places as well. 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 Social History Alcohol Use: Yes (OCCASIONALLY) Tobacco Use: No (quit 20 years ago) Allergies-Medications (Allergen,Severity, Reaction): Coded Allergies: cephalexin (Verified Allergy, Intermediate, rash and itchy, 09/28/17) Sulfa (Sulfonamide Antibiotics) (Verified Adverse Reaction, Severe, hives , 09/28/17) doxycycline (Verified Adverse Reaction, Severe, RASH, 09/28/17) azithromycin (Verified Adverse Reaction, Intermediate, HIVES, 09/28/17) ciprofloxacin (Verified Adverse Reaction, Intermediate, HIVES, 09/28/17) levofloxacin (Verified Adverse Reaction, Intermediate, hives, 09/28/17) linezolid (Verified Adverse Reaction, Intermediate, rash, 09/28/17) mupirocin (Verified Adverse Reaction, Intermediate, HIVES, 09/28/17) penicillin G (Verified Adverse Reaction, Intermediate, HIVES, 09/28/17) rifampin (Verified Adverse Reaction, Intermediate, hives, 09/28/17) sulfamethoxazole (Verified Adverse Reaction, Intermediate, hives, 09/28/17) trimethoprim (Verified Adverse Reaction, Intermediate, hives, 09/28/17) Reported Meds & Prescriptions Reported Meds & Active Scripts Active Reported Xarelto (Rivaroxaban) 20 Mg Tab 20 Mg PO DAILY Latanoprost Opth Drops (Latanoprost) 0.005% Drops 1 Drop EACH EYE HS Refrigerate until opened. Rabeprazole (Rabeprazole Sodium) 20 Mg Tab 20 Mg PO DAILY Lipitor (Atorvastatin Calcium) 10 Mg Tab 10 Mg PO HS Levetiracetam 750 Mg Tab 750 Mg PO BID Review of Systems Except as stated in HPI: all other systems reviewed are Neg Physical Exam Narrative GENERAL: Well-appearing 87-year-old man, no acute distress. SKIN: Focused skin assessment warm/dry. HEAD: Atraumatic. Normocephalic. EYES: Pupils equal and round. No scleral icterus. No injection or drainage. ENT: No nasal bleeding or discharge. Mucous membranes pink and moist. NECK: Trachea midline. No JVD. CARDIOVASCULAR: Regular rate and rhythm. No murmur appreciated. RESPIRATORY: No accessory muscle use. Clear to auscultation. Breath sounds equal bilaterally. GASTROINTESTINAL: Abdomen soft, non-tender, nondistended. Hepatic and splenic margins not palpable. MUSCULOSKELETAL: No obvious deformities. No clubbing. No cyanosis. No edema. Small area of irritation redness of the right arm. No swelling or evidence of cellulitis. NEUROLOGICAL: Awake and alert. No obvious cranial nerve deficits. Motor grossly within normal limits. Normal speech. PSYCHIATRIC: Appropriate mood and affect; insight and judgment normal. Data Data Last Documented VS Vital Signs Date Time Temp Pulse Resp B/P (MAP) Pulse Ox O2 Delivery O2 Flow Rate FiO2 09/28/17 13:30 97.8 82 16 146/65 (92) 100 Orders Orders Complete Blood Count With Diff (09/28/17 13:33) Comprehensive Metabolic Panel (09/28/17 13:33) Labs Laboratory Tests Test 09/28/17 15:41 White Blood Count 7.5 TH/MM3 Red Blood Count 3.92 MIL/MM3 Hemoglobin 12.3 GM/DL Hematocrit 36.6 % Mean Corpuscular Volume 93.2 FL Mean Corpuscular Hemoglobin 31.5 PG Mean Corpuscular Hemoglobin Concent 33.8 % Red Cell Distribution Width 13.2 % Platelet Count 247 TH/MM3 Mean Platelet Volume 9.4 FL Neutrophils (%) (Auto) 51.9 % Lymphocytes (%) (Auto) 29.0 % Monocytes (%) (Auto) 11.6 % Eosinophils (%) (Auto) 6.9 % Basophils (%) (Auto) 0.6 % Neutrophils # (Auto) 3.9 TH/MM3 Lymphocytes # (Auto) 2.2 TH/MM3 Monocytes # (Auto) 0.9 TH/MM3 Eosinophils # (Auto) 0.5 TH/MM3 Basophils # (Auto) 0.0 TH/MM3 CBC Comment DIFF FINAL Differential Comment MDM Medical Decision Making Medical Screen Exam Complete: Yes Emergency Medical Condition: Yes Interpretation(s) CBC is unremarkable Differential Diagnosis Pruritic rash, contact dermatitis, other Narrative Course Medical decision making very is an 87 Youman presents emerged department complaining of pruritic rash to the left arm. Also one episode of near syncope couple days ago. Looks overall well. Is treated for DVT PE. No chest pain shortness of breath or other related symptoms. Recommend a stronger topical steroid, outpatient follow-up. Diagnosis Primary Impression: Pruritic rash Patient Instructions: General Instructions Additional Instructions: Apply steroid cream sparingly as needed for the left arm. Return to the emergency department for any worsening pain redness swelling trouble breathing and he spells or any other new or worsening symptoms. Med/Other Pt SpecificInfo: Prescription(s) given Scripts Triamcinolone Topical (Triamcinolone Topical) 0.1 % Oint 1 APPLIC TOPICAL BID for Inflammation, #30 GM 0 Refills Prov: Sawyer Doe MD 09/28/17 Disposition: 01 DISCHARGE HOME Condition: Stable Sawyer Doe MD Sep 28, 2017 17:28
[2017-09-28 17:41] LABS: ALBUMIN 3.9 GM/DL (3.4-5.0); ALT (GPT) 16 U/L (12-78); AST (GOT) 22 U/L (15-37); BICARBONATE 26.2 MEQ/L (21.0-32.0); BLOOD UREA NITROGEN 14 MG/DL (7-18); CALCIUM 9.8 MG/DL (8.5-10.1); CHLORIDE 105 MEQ/L (98-107); CREATININE 0.89 MG/DL (0.60-1.30); GLOMERULAR FILTRATION RATE 81 ML/MIN (>89); GLUCOSE,RANDOM 92 MG/DL (74-106); SODIUM (NA) 139 MEQ/L (136-145)
[2017-09-28 17:44] LABS: ALKALINE PHOSPHATASE 95 U/L (45-117); TOTAL BILIRUBIN ADULT 0.4 MG/DL (0.2-1.0); TOTAL PROTEIN 7.2 GM/DL (6.4-8.2)
== END 2017-09-28 18:19 | disposition home or self-care (01) ==
LOC: NEPD 13:21
DX: L29.9 Pruritus, unspecified (principal); R21 Rash and other nonspecific skin eruption
CPT/HCPCS: 80053; 85025; 99283

== ENCOUNTER 2017-10-15 07:10 | Emergency (ER) | payer MEDICARE, OTHER ==
[~2017-10-15 07:10] MED LIST changes: -CEPH-460 PO; -EYEDRO; -PRED20 PO; +TRIAM.1%T TOPICAL; -XARE15TA PO; +XARE20TA PO
[2017-10-15 07:14] VITALS: BP 140/63; PULSE 75; RESP 18; TEMP 97.7; O2SAT 100
[2017-10-15] MEDS ORDERED: FERR140T PO (07:27)
[2017-10-15] MEDS ORDERED: SODIUM CHLORID 0.9% 500 ML INJ 500 ML IV ONE (08:00)
[2017-10-15] MEDS ORDERED: SODIUM CHLORIDE 0.9% FLUSH 10 ML FLUSH IVF PRN (08:00)
--- NOTE | 2017-10-15 08:07 | PD ---
HPI Chief Complaint: General Weakness Time Seen by Provider: 07:46 Travel History International Travel<30 days: No Contact w/Intl Traveler<30days: No Traveled to known affect area: No History of Present Illness HPI Patient is an 87-year-old male comes in complaining of weakness and dizziness. He says this started earlier in the week. He says going to the gym he notices the symptoms more. He says it is more of a lightheadedness and dizziness. He denies any headache or any pains. He denies any chest pain or shortness of breath. He denies nausea or vomiting. He denies any falls or syncopal episodes. He says he is just not sure what is going on. Severity is mild. PFSH Past Medical History Hx Anticoagulant Therapy: Yes Arthritis: Yes (GENERALIZED) Autoimmune Disease: No Blood Disorders: No Anxiety: No Depression: No Cancer: Yes (SKIN CANCER ) Cardiovascular Problems: Yes (temporal arteritis) High Cholesterol: Yes Chemotherapy: No Cerebrovascular Accident: No Diabetes: No Diminished Hearing: No Endocrine: No Gastrointestinal Disorders: Yes GERD: Yes Glaucoma: Yes Genitourinary: Yes Immune Disorder: No Implanted Vascular Access Dvce: Yes Kidney Stones: Yes (CHRONIC) Musculoskeletal: Yes Neurologic: No Psychiatric: No Reproductive: No Respiratory: No Integumentary: Yes (MRSA X 4) Radiation Therapy: No Thyroid Disease: No Tetanus Vaccination: < 5 Years Past Surgical History Body Medical Devices: RIGHT GREAT TOE IMPLANT Eye Surgery: Yes (SHIMA. CATARACT EXTRACTION WITH IOL's) Genitourinary Surgery: Yes (NEPHROLITHOTRIPSY) Other Surgery: Yes (SKIN CA REMOVED FROM UPPER LIP) Family History Family Hypercholesterolemia: Yes Social History Alcohol Use: Yes (OCCASIONALLY) Tobacco Use: No (quit 20+ years ago) Substance Use: No Allergies-Medications (Allergen,Severity, Reaction): Coded Allergies: cephalexin (Verified Allergy, Intermediate, rash and itchy, 10/15/17) Sulfa (Sulfonamide Antibiotics) (Verified Adverse Reaction, Severe, hives , 10/15/17) doxycycline (Verified Adverse Reaction, Severe, RASH, 10/15/17) azithromycin (Verified Adverse Reaction, Intermediate, HIVES, 10/15/17) ciprofloxacin (Verified Adverse Reaction, Intermediate, HIVES, 10/15/17) levofloxacin (Verified Adverse Reaction, Intermediate, hives, 10/15/17) linezolid (Verified Adverse Reaction, Intermediate, rash, 10/15/17) mupirocin (Verified Adverse Reaction, Intermediate, HIVES, 10/15/17) penicillin G (Verified Adverse Reaction, Intermediate, HIVES, 10/15/17) rifampin (Verified Adverse Reaction, Intermediate, hives, 10/15/17) sulfamethoxazole (Verified Adverse Reaction, Intermediate, hives, 10/15/17) trimethoprim (Verified Adverse Reaction, Intermediate, hives, 10/15/17) Reported Meds & Prescriptions Reported Meds & Active Scripts Active Triamcinolone Topical (Triamcinolone Acetonide) 0.1 % Oint 1 Applic TOPICAL BID Reported Ferrous Sulfate ER (Ferrous Sulfate) 140 Mg (45 Mg Iron) Tab 140 Mg PO DAILY Xarelto (Rivaroxaban) 20 Mg Tab 20 Mg PO DAILY Latanoprost Opth Drops (Latanoprost) 0.005% Drops 1 Drop EACH EYE HS Refrigerate until opened. Rabeprazole (Rabeprazole Sodium) 20 Mg Tab 20 Mg PO DAILY Lipitor (Atorvastatin Calcium) 10 Mg Tab 10 Mg PO HS Levetiracetam 750 Mg Tab 750 Mg PO BID Review of Systems Except as stated in HPI: all other systems reviewed are Neg General / Constitutional: No: Fever, Chills Eyes: No: Blurred Vision HENT: Positive: Lightheadedness, No: Headaches Cardiovascular: No: Chest Pain or Discomfort Respiratory: No: Shortness of Breath Gastrointestinal: No: Nausea, Vomiting Musculoskeletal: No: Myalgias, Edema Skin: No Rash, No Change in Pigmentation Neurologic: Positive: Dizziness, No: Weakness Physical Exam Narrative GENERAL: Awake and alert, in no acute distress. SKIN: Focused skin assessment warm/dry. HEAD: Atraumatic. Normocephalic. EYES: Pupils equal and round. No scleral icterus. EOMI ENT: Mucous membranes pink and moist. NECK: Trachea midline. No JVD. CARDIOVASCULAR: Regular rate and rhythm. No murmur appreciated. RESPIRATORY: No accessory muscle use. Clear to auscultation. Breath sounds equal bilaterally. GASTROINTESTINAL: Abdomen soft, non-tender, nondistended. MUSCULOSKELETAL: No obvious deformities. No clubbing. No cyanosis. No edema. NEUROLOGICAL: Awake and alert. No obvious cranial nerve deficits. Motor grossly within normal limits. Normal speech. PSYCHIATRIC: Appropriate mood and affect; insight and judgment normal. Data Data Last Documented VS Vital Signs Date Time Temp Pulse Resp B/P (MAP) Pulse Ox O2 Delivery O2 Flow Rate FiO2 10/15/17 07:14 97.7 75 18 140/63 (88) 100 Orders Orders Electrocardiogram (10/15/17 07:59) Complete Blood Count With Diff (10/15/17 07:59) Comprehensive Metabolic Panel (10/15/17 07:59) Ckmb (Isoenzyme) Profile (10/15/17 07:59) Troponin I (10/15/17 07:59) Act Partial Throm Time (Ptt) (10/15/17 07:59) Prothrombin Time / Inr (Pt) (10/15/17 07:59) Urinalysis - C+S If Indicated (10/15/17 07:59) Chest, Single Ap (10/15/17 07:59) Ct Brain W/O Iv Contrast(Rout) (10/15/17 07:59) Ecg Monitoring (10/15/17 07:59) Iv Access Insert/Monitor (10/15/17 07:59) Oximetry (10/15/17 07:59) Sodium Chloride 0.9% Flush (Ns Flush) (10/15/17 08:00) Sodium Chlorid 0.9% 500 Ml Inj (Ns 500 M (10/15/17 08:00) Labs Laboratory Tests Test 10/15/17 07:37 10/15/17 09:24 White Blood Count 6.3 TH/MM3 Red Blood Count 4.00 MIL/MM3 Hemoglobin 12.4 GM/DL Hematocrit 37.2 % Mean Corpuscular Volume 93.0 FL Mean Corpuscular Hemoglobin 30.9 PG Mean Corpuscular Hemoglobin Concent 33.3 % Red Cell Distribution Width 13.6 % Platelet Count 267 TH/MM3 Mean Platelet Volume 9.2 FL Neutrophils (%) (Auto) 48.2 % Lymphocytes (%) (Auto) 35.1 % Monocytes (%) (Auto) 10.9 % Eosinophils (%) (Auto) 5.3 % Basophils (%) (Auto) 0.5 % Neutrophils # (Auto) 3.0 TH/MM3 Lymphocytes # (Auto) 2.2 TH/MM3 Monocytes # (Auto) 0.7 TH/MM3 Eosinophils # (Auto) 0.3 TH/MM3 Basophils # (Auto) 0.0 TH/MM3 CBC Comment DIFF FINAL Differential Comment Prothrombin Time 13.7 SEC Prothromb Time International Ratio 1.4 RATIO Activated Partial Thromboplast Time 30.3 SEC Blood Urea Nitrogen 13 MG/DL Creatinine 0.77 MG/DL Random Glucose 92 MG/DL Total Protein 7.1 GM/DL Albumin 3.8 GM/DL Calcium Level 9.4 MG/DL Alkaline Phosphatase 101 U/L Aspartate Amino Transf (AST/SGOT) 20 U/L Alanine Aminotransferase (ALT/SGPT) 15 U/L Total Bilirubin 0.5 MG/DL Sodium Level 139 MEQ/L Potassium Level 4.1 MEQ/L Chloride Level 105 MEQ/L Carbon Dioxide Level 26.5 MEQ/L Anion Gap 8 MEQ/L Estimat Glomerular Filtration Rate 96 ML/MIN Total Creatine Kinase 48 U/L Troponin I LESS THAN 0.02 NG/ML Urine Color YELLOW Urine Turbidity CLEAR Urine pH 6.5 Urine Specific [place] 1.008 Urine Protein NEG mg/dL Urine Glucose (UA) NEG mg/dL Urine Ketones NEG mg/dL Urine Occult Blood NEG Urine Nitrite NEG Urine Bilirubin NEG Urine Urobilinogen LESS THAN 2.0 MG/DL Urine Leukocyte Esterase NEG Urine WBC 1 /hpf Urine Mucus FEW /lpf Microscopic Urinalysis Comment CULT NOT INDICATED MDM Medical Decision Making Medical Screen Exam Complete: Yes Emergency Medical Condition: Yes Medical Record Reviewed: Yes Interpretation(s) ECG shows sinus rhythm at a rate of 60. Differential Diagnosis electrolyte abnormalities vs dehydration vs anemia vs infection Narrative Course Patient is a 87 year old male who comes in complaining of weakness and dizziness. Exam shows no acute abnormalities. IV established, labs sent. Labs show no acute abnormalities. CT head performed shows no acute abnormalities. CXR shows no acute abnormalities. Last [address] 10/15/17 0759 Signed Impressions: Service Date/Time: Sunday, October 15, 2017 09:39 - CONCLUSION: Negative for fracture or dislocation. Follow up in 7-10 days is suggested if symptoms persist. Barry Frye MD FACR Chest X-Ray 10/15/17 0759 Signed Impressions: Service Date/Time: Sunday, October 15, 2017 08:41 - CONCLUSION: Minimal patchy airspace disease both lung apices is stable in the interval. Barry Frye MD FACR Patient advised to eat prior to going to the gym. Advised to follow up with his doctor. Advised to return to the ED as needed for any worsening symptoms. Diagnosis Primary Impression: Weakness Patient Instructions: General Instructions, Weakness (ED) Additional Instructions: Follow up with your doctor. Return to the ED as needed for any worsening symptoms. Disposition: 01 DISCHARGE HOME Condition: Stable Glenny Burt MD Oct 15, 2017 08:06
[2017-10-15 08:37] LABS: BASOPHIL % 0.5 % (0.0-2.0); EOSINOPHIL # 0.3 TH/MM3 (0-0.4); EOSINOPHIL % 5.3 % (0.0-4.0); HEMATOCRIT 37.2 % (39.0-51.0); HEMOGLOBIN 12.4 GM/DL (13.0-17.0); LYMPH % 35.1 % (9.0-44.0); LYMPHOCYTE # 2.2 TH/MM3 (1.0-4.8); MEAN CORPUSCULAR HEMOGLOBIN 30.9 PG (27.0-34.0); MEAN CORPUSCULAR HGB CONC 33.3 % (32.0-36.0); MEAN PLATELET VOLUME 9.2 FL (7.0-11.0); MONO % 10.9 % (0.0-8.0); MONOCYTE # 0.7 TH/MM3 (0-0.9); NEUT % 48.2 % (16.0-70.0); PLATELET COUNT 267 TH/MM3 (150-450); RED CELL DISTRIBUTION WIDTH 13.6 % (11.6-17.2); WHITE BLOOD COUNT 6.3 TH/MM3 (4.0-11.0)
[2017-10-15 08:39] LABS: INTERNATIONAL NORMALIZED RATIO 1.4 RATIO; PROTHROMBIN TIME - PATIENT 13.7 SEC (9.8-11.6)
[2017-10-15 08:49] LABS: ALBUMIN 3.8 GM/DL (3.4-5.0); ALT (GPT) 15 U/L (12-78); AST (GOT) 20 U/L (15-37); BICARBONATE 26.5 MEQ/L (21.0-32.0); BLOOD UREA NITROGEN 13 MG/DL (7-18); CALCIUM 9.4 MG/DL (8.5-10.1); CHLORIDE 105 MEQ/L (98-107); CREATININE 0.77 MG/DL (0.60-1.30); GLOMERULAR FILTRATION RATE 96 ML/MIN (>89); GLUCOSE,RANDOM 92 MG/DL (74-106); SODIUM (NA) 139 MEQ/L (136-145)
[2017-10-15 08:52] LABS: ALKALINE PHOSPHATASE 101 U/L (45-117); TOTAL BILIRUBIN ADULT 0.5 MG/DL (0.2-1.0); TOTAL PROTEIN 7.1 GM/DL (6.4-8.2); TROPONIN I LESS THAN 0.02 NG/ML (0.02-0.05)
--- NOTE | 2017-10-15 09:07 | RADRPT ---
EXAM DATE/TIME: 10/15/2017 08:41 [facility] COMPARISON: CHEST SINGLE AP, July 26, 2017, 23:19. INDICATIONS : Patient complains of palpitations and generalized weakness and dizziness. MEDICAL HISTORY : Pulmonary embolism. SURGICAL HISTORY : None. ENCOUNTER: Initial ACUITY: 3 days PAIN SCORE: 0/10 LOCATION: chest FINDINGS: Patchy airspace disease in both lung apices. Lungs are clear. The heart and pulmonary vascularity a re normal. The portion of the bony skeleton visualized is unremarkable. CONCLUSION: Minimal patchy airspace disease both lung apices is stable in the interval. Barry Frye MD FACR on October 15, 2017 at 9:04 Board Certified Radiologist. This report was verified electronically.
--- NOTE | 2017-10-15 09:51 | RADRPT ---
EXAM DATE/TIME: 10/15/2017 09:39 [facility] COMPARISON: CT BRAIN W/O CONTRAST, April 03, 2016, 18:58. INDICATIONS : Dizziness and general weakness for four days. RADIATION DOSE: 35.14 CTDIvol (mGy) MEDICAL HISTORY : Cardiovascular disease. Renal calculi. skin cancer SURGICAL HISTORY : eye prosthesis ENCOUNTER: Initial ACUITY: 1 day PAIN SCALE: 0/10 LOCATION: Bilateral head TECHNIQUE: Multiple contiguous axial images were obtained of the head. Using automated exposure control and adj ustment of the mA and/or kV according to patient size, radiation dose was kept as low as reasonably a chievable to obtain optimal diagnostic quality images. DICOM format image data is available electro nically for review and comparison. FINDINGS: CEREBRUM: The ventricles are normal for age. No evidence of midline shift, mass lesion, hemorrhage or acute in farction. No extra-axial fluid collections are seen. POSTERIOR FOSSA: The cerebellum and brainstem are intact. The 4th ventricle is midline. The cerebellopontine angle i s unremarkable. EXTRACRANIAL: The visualized portion of the orbits is intact. SKULL: The calvaria is intact. No evidence of skull fracture. CONCLUSION: Negative for fracture or dislocation. Follow up in 7-10 days is suggested if symptoms persist. Barry Frye MD FACR on October 15, 2017 at 9:48 Board Certified Radiologist. This report was verified electronically.
[2017-10-15 10:48] LABS: BILIRUBIN, URINE NEG (NEG); BLOOD, URINE NEG (NEG); GLUCOSE,URINE NEG (NEG); KETONE, URINE NEG (NEG); MUCUS URINE FEW /lpf (OCC); NITRITE,URINE NEG (NEG); PH, URINE 6.5 (5.0-8.5); URINE COLOR YELLOW (YELLW/STRAW); URINE LEUKOCYTE ESTERASE NEG (NEG)
--- NOTE | 2017-10-15 16:44 | EKG ---
Date Performed: 10/15/2017 Time Performed: 08:24:23 PTAGE: 87 years EKG: Sinus rhythm WITH OCCASIONAL VENTRICULAR PREMATURE COMPLEXES Since the previous tracing, no significant change no lucila BORDERLINE ECG PREVIOUS TRACING : 07/27/2017 03.55 DOCTOR: Jael Dorantes Interpretating Date/Time 10/15/2017 16:43:48
== END 2017-10-15 11:38 | disposition home or self-care (01) ==
LOC: NEPE 07:10
DX: R53.1 Weakness (principal); R42 Dizziness and giddiness; E78.00 Pure hypercholesterolemia, unspecified; Z79.01 Long term (current) use of anticoagulants
CPT/HCPCS: 70450; 71045; 80053; 81001; 82550; 84484; 85025; 85610; 85730; 93005; 96360; 99285; J7040

== ENCOUNTER → 2017-10-27 | Outpatient (CLI) | payer MEDICARE, OTHER ==
[~2017-10-27] MED LIST changes: +FERR140T PO
[2017-10-27 15:12] LABS: HEMATOCRIT 34.5 % (39.0-51.0); HEMOGLOBIN 11.7 GM/DL (13.0-17.0); MEAN CELL VOLUME 93.5 FL (80.0-100.0); MEAN CORPUSCULAR HEMOGLOBIN 31.8 PG (27.0-34.0); MEAN PLATELET VOLUME 8.5 FL (7.0-11.0); PLATELET COUNT 254 TH/MM3 (150-450); RED BLOOD COUNT 3.69 MIL/MM3 (4.50-5.90); RED CELL DISTRIBUTION WIDTH 14.3 % (11.6-17.2); WHITE BLOOD COUNT 6.2 TH/MM3 (4.0-11.0)
[2017-10-27 15:41] LABS: ALBUMIN 3.6 GM/DL (3.4-5.0); AST (GOT) 20 U/L (15-37); BICARBONATE 26.1 MEQ/L (21.0-32.0); BLOOD UREA NITROGEN 17 MG/DL (7-18); CALCIUM 9.2 MG/DL (8.5-10.1); CHLORIDE 107 MEQ/L (98-107); CHOLESTEROL 118 MG/DL (120-200); CREATININE 0.78 MG/DL (0.60-1.30); GLOMERULAR FILTRATION RATE 94 ML/MIN (>89); GLUCOSE,FASTING 74 MG/DL (74-99); SODIUM (NA) 142 MEQ/L (136-145)
[2017-10-27 15:45] LABS: ALKALINE PHOSPHATASE 90 U/L (45-117); ALT (GPT) 15 U/L (12-78); CHOLESTEROL/ HDL RATIO 1.81 RATIO; LDL CHOLESTEROL 45 MG/DL (0-99); TOTAL BILIRUBIN ADULT 0.5 MG/DL (0.2-1.0); TOTAL PROTEIN 6.6 GM/DL (6.4-8.2); TRIGLYCERIDES 38 MG/DL (42-150)
== END ==
LOC: CLAB 14:37
PROVIDERS: ATTEND Internal Medicine Cardiovascular Disease
DX: E78.5 Hyperlipidemia, unspecified (principal); I47.1 Supraventricular tachycardia; I25.10 Atherosclerotic heart disease of native coronary artery without angina pectoris; I26.99 Other pulmonary embolism without acute cor pulmonale
CPT/HCPCS: 36415; 80053; 80061; 82550; 85027

== ENCOUNTER 2017-12-28 07:13 | Emergency (ER) | payer MEDICARE, OTHER ==
[~2017-12-28] VITALS: Ht 177.8 cm; Wt 70.0 kg
[2017-12-28 07:17] VITALS: BP 130/60; PULSE 75; RESP 16; TEMP 97.8; O2SAT 100
[2017-12-28] MEDS ORDERED: PRED20 PO (07:29)
--- NOTE | 2017-12-28 08:07 | PD ---
HPI Chief Complaint: Pain: Acute or Chronic Time Seen by Provider: 07:23 Travel History International Travel<30 days: No Contact w/Intl Traveler<30days: No Traveled to known affect area: No History of Present Illness HPI 87-year-old male presents the ED for evaluation of dental pain in the right calf. Rated 3/10, onset around 3 AM. Now resolved. He denies fever, chills, chest pain, palpitations, shortness of breath. 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 He states he had a little swelling prior to the diagnosis but is never had any pain. He is on Xarelto and endorses compliance with medications. He is followed by Dr. Peters. [facility] Past Medical History Hx Anticoagulant Therapy: Yes Arthritis: Yes (GENERALIZED) Autoimmune Disease: No Blood Disorders: No Anxiety: No Depression: No Cancer: Yes (SKIN CANCER ) Cardiovascular Problems: Yes (temporal arteritis) High Cholesterol: Yes Chemotherapy: No Cerebrovascular Accident: No Diabetes: No Diminished Hearing: No Endocrine: No Gastrointestinal Disorders: Yes GERD: Yes Glaucoma: Yes Genitourinary: Yes Immune Disorder: No Implanted Vascular Access Dvce: Yes Kidney Stones: Yes (CHRONIC) Musculoskeletal: Yes Neurologic: No Psychiatric: No Reproductive: No Respiratory: Yes Integumentary: Yes (MRSA X 4) Radiation Therapy: No Thyroid Disease: No Tetanus Vaccination: < 5 Years Past Surgical History Body Medical Devices: RIGHT GREAT TOE IMPLANT Eye Surgery: Yes (SHIMA. CATARACT EXTRACTION WITH IOL's) Genitourinary Surgery: Yes (NEPHROLITHOTRIPSY) Other Surgery: Yes (SKIN CA REMOVED FROM UPPER LIP) Family History Family Hypercholesterolemia: Yes Social History Alcohol Use: Yes (OCCASIONALLY) Tobacco Use: No (quit 20+ years ago) Substance Use: No Allergies-Medications (Allergen,Severity, Reaction): Coded Allergies: cephalexin (Verified Allergy, Intermediate, rash and itchy, 12/28/17) Sulfa (Sulfonamide Antibiotics) (Verified Adverse Reaction, Severe, hives , 12/28/17) doxycycline (Verified Adverse Reaction, Severe, RASH, 12/28/17) azithromycin (Verified Adverse Reaction, Intermediate, HIVES, 12/28/17) ciprofloxacin (Verified Adverse Reaction, Intermediate, HIVES, 12/28/17) levofloxacin (Verified Adverse Reaction, Intermediate, hives, 12/28/17) linezolid (Verified Adverse Reaction, Intermediate, rash, 12/28/17) mupirocin (Verified Adverse Reaction, Intermediate, HIVES, 12/28/17) penicillin G (Verified Adverse Reaction, Intermediate, HIVES, 12/28/17) rifampin (Verified Adverse Reaction, Intermediate, hives, 12/28/17) sulfamethoxazole (Verified Adverse Reaction, Intermediate, hives, 12/28/17) trimethoprim (Verified Adverse Reaction, Intermediate, hives, 12/28/17) Reported Meds & Prescriptions Reported Meds & Active Scripts Active Triamcinolone Topical (Triamcinolone Acetonide) 0.1 % Oint 1 Applic TOPICAL BID Reported Prednisone 20 Mg Tab 20 Mg PO DAILY Ferrous Sulfate ER (Ferrous Sulfate) 140 Mg (45 Mg Iron) Tab 140 Mg PO DAILY Xarelto (Rivaroxaban) 20 Mg Tab 20 Mg PO DAILY Latanoprost Opth Drops (Latanoprost) 0.005% Drops 1 Drop EACH EYE HS Refrigerate until opened. Rabeprazole (Rabeprazole Sodium) 20 Mg Tab 20 Mg PO DAILY Lipitor (Atorvastatin Calcium) 10 Mg Tab 10 Mg PO HS Levetiracetam 750 Mg Tab 500 Mg PO DAILY Review of Systems Except as stated in HPI: all other systems reviewed are Neg Physical Exam Narrative GENERAL: Well-nourished, well-developed pleasant white male no acute distress. SKIN: Focused skin assessment warm/dry. HEAD: Normocephalic. EYES: No scleral icterus. No injection or drainage. NECK: Supple, trachea midline. No JVD or lymphadenopathy. CARDIOVASCULAR: Regular rate and rhythm without murmurs, gallops, or rubs. RESPIRATORY: Breath sounds clear and equal bilaterally. No accessory muscle use. GASTROINTESTINAL: Abdomen soft, non-tender, nondistended. MUSCULOSKELETAL: No cyanosis, or edema. FOCUSED RIGHT LOWER EXTREMITY EXAM: 2+ DP pulse. Foot is warm and well perfused. Patient retains full, active, painless ROM of the joints of the leg. Homans sign negative. Neurovascularly intact distally. BACK: Nontender without obvious deformity. No CVA tenderness. Data Data Last Documented VS Vital Signs Date Time Temp Pulse Resp B/P (MAP) Pulse Ox O2 Delivery O2 Flow Rate FiO2 12/28/17 08:23 97.8 68 16 124/81 (95) 99 Orders Orders Ed Discharge Order (12/28/17 08:16) MDM Medical Decision Making Medical Screen Exam Complete: Yes Emergency Medical Condition: Yes Differential Diagnosis DVT versus musculoskeletal pain versus less likely PE versus other Narrative Course 87-year-old male with recent diagnosis of DVT of the right lower extremity presents the ED for evaluation of 3/10 pain of the same. He felt this around 3 AM but states that since resolved. He states he had swelling in his leg which prompted the evaluation. He states he had a little tenderness during the ultrasound but he states otherwise his leg is not been painful. He denies any chest pain, palpitations, shortness of breath. He is compliant with Xarelto. Vitals reviewed. Physical exam is reassuring. I explained to the patient that it is common to have pain related to the DVT and explained red flag symptoms and reasons to return to the ED. The patient states that he is not sure if anyone told him that he might have pain related to the DVT "but it makes sense. " He is eager to return to his daily activities, states that he has missed having coffee with his friends this morning. 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 He is stable and discharged home. Diagnosis Primary Impression: Right calf pain Additional Impression: History of DVT of lower extremity Referrals: Public Affairs Officer Primary Care Physician Additional Instructions: Rest, hydrate. Continue medications as previously prescribed. 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 Return to the ED for worsening symptoms or any urgent or emergent medical condition. Disposition: 01 DISCHARGE HOME Condition: Stable Marleny Shelton Dec 28, 2017 08:07
[2017-12-28 08:23] VITALS: BP 124/81; TEMP 97.8
== END 2017-12-28 08:23 | disposition home or self-care (01) ==
LOC: NEPD 07:13
DX: M79.661 Pain in right lower leg (principal); Z86.718 Personal history of other venous thrombosis and embolism; Z79.01 Long term (current) use of anticoagulants; M19.90 Unspecified osteoarthritis, unspecified site; E78.00 Pure hypercholesterolemia, unspecified; H40.9 Unspecified glaucoma; K21.9 Gastro-esophageal reflux disease without esophagitis; Z87.442 Personal history of urinary calculi; Z88.8 Allergy status to other drugs, medicaments and biological substances
CPT/HCPCS: 99281